=== PATIENT | male | born 1960 | race African-American/Black ===

== ENCOUNTER 2020-07-22 16:05 | Inpatient (IN) | payer OTHER ==
[2020-07-22 16:36] VITALS: BMI 20.5
[2020-07-22] MEDS ORDERED: ACETAMINOPHEN 1000 MG/100 ML VIAL (NON FORMULARY) IVPB ONE (16:55)
[2020-07-22 16:56] VITALS: TEMP 99.9
[2020-07-22 17:11] LABS: EOS % 0.3 % (0-4.5); HEMATOCRIT 35.1 % (35.4-49); HEMOGLOBIN 11.1 GM/dL (11.7-16.9); LYMPH % 11.4 % (8-40); MCH 28.6 pg (25.7-33.7); MCHC 31.6 g/dl (32.0-35.9); MEAN CELL VOLUME 90.7 fl (80-96); MEAN PLT VOLUME 9.8 fl (7.5-11.1); MONO % 8.3 % (3.8-10.2); PLATELET COUNT 182 K/MM3 (134-434); RBC 3.87 M/mm3 (4.00-5.60); RDW 17.8 % (11.9-15.9); WHITE BLOOD COUNT 5.8 K/mm3 (4.0-10.0)
[2020-07-22 17:26] LABS: INR 1.08 (0.83-1.09); PROTHROMBIN TIME (PATIENT) 13.2 SEC (9.7-13.0)
[2020-07-22 17:28] LABS: ACTIVATED PTT 33.9 SECONDS (25.2-36.5)
[2020-07-22 17:31] LABS: VENOUS BASE EXCESS -5.3 mmol/L (-2-2); VENOUS O2 SATURATION 96.8 % (70-80); VENOUS PH 7.362 (7.310-7.410)
[2020-07-22] MEDS ORDERED: ACETAMINOPHEN INJECTION 100 ML IVPB ONE (17:35)
[2020-07-22 17:39] LABS: POTASSIUM 4.6 mmol/L (3.5-5.1)
[2020-07-22 17:41] LABS: CALCIUM 7.9 mg/dL (8.5-10.1)
[2020-07-22 17:42] LABS: ALBUMIN 3.1 g/dl (3.4-5.0); BLOOD UREA NITROGEN 18.3 mg/dL (7-18)
[2020-07-22 17:45] LABS: BILIRUBIN,DIRECT 0.1 mg/dL (0.0-0.2); CREATININE 4.8 mg/dL (0.55-1.3)
[2020-07-22 17:46] LABS: BILIRUBIN,TOTAL 0.5 mg/dL (0.2-1); TOT PROT 6.9 g/dl (6.4-8.2)
[2020-07-22] MEDS ORDERED: INSULIN REGULAR HUMAN 100 UNITS/ML *VIAL SQ ONE (18:16)
[2020-07-22] MEDS ORDERED: FUROSEMIDE 40 MG/4 ML INJECTABLE VIAL IVPUSH ONE (20:52)
[2020-07-22] MEDS ORDERED: SODIUM CHLORIDE 250 ML IV PRN (20:58)
[2020-07-22] MEDS ORDERED: FUROSEMIDE 40 MG/4 ML INJECTABLE VIAL ONE (21:18)
[2020-07-23 01:19] LABS: EPI CELLS 3 /uL (0-25.1); HYALINE CASTS 0 /uL (0-3.1); PH,URINE 6.5 (5.0-8.0); URINE APPEARANCE CLEAR; URINE BACTERIA 2 /uL (0-1359); URINE BILIRUBIN NEGATIVE (NEGATIVE); URINE COLOR YELLOW; URINE GLUCOSE (UA) 3+ (NEGATIVE); URINE KETONE NEGATIVE (NEGATIVE); URINE LEUK ESTERASE NEGATIVE (NEGATIVE); URINE NITRITE NEGATIVE (NEGATIVE); URINE PROTEIN 3+ (NEGATIVE); URINE RBC 19 /uL (0-23.9); URINE UROBILINOGEN 0.2 mg/dL (0.2-1.0); URINE WBC 2 /uL (0-25.8)
[2020-07-23] MEDS ORDERED: HEPARIN NA (PORCINE) 5,000 UNITS/ML 1ML VIAL SQ SCH (06:00)
[2020-07-23] MEDS ORDERED: HEPARIN NA (PORCINE) 5,000 UNITS/ML 1ML VIAL ONE (06:07)
[2020-07-23 06:17] LABS: HEMATOCRIT 33.6 % (35.4-49); HEMOGLOBIN 10.7 GM/dL (11.7-16.9); MCH 28.4 pg (25.7-33.7); MCHC 31.7 g/dl (32.0-35.9); MEAN CELL VOLUME 89.8 fl (80-96); MEAN PLT VOLUME 8.8 fl (7.5-11.1); PLATELET COUNT 147 K/MM3 (134-434); RBC 3.74 M/mm3 (4.00-5.60); RDW 17.5 % (11.9-15.9); WHITE BLOOD COUNT 5.4 K/mm3 (4.0-10.0)
[2020-07-23 06:20] VITALS: PULSE 93
[2020-07-23 06:36] LABS: POTASSIUM 5.1 mmol/L (3.5-5.1)
[2020-07-23 06:38] LABS: CALCIUM 8.2 mg/dL (8.5-10.1)
[2020-07-23 06:39] LABS: ALBUMIN 2.9 g/dl (3.4-5.0); BLOOD UREA NITROGEN 23.1 mg/dL (7-18); MAGNESIUM 1.9 mg/dL (1.8-2.4)
[2020-07-23 06:42] LABS: CREATININE 5.1 mg/dL (0.55-1.3); PHOSPHOROUS 4.4 mg/dL (2.5-4.9)
[2020-07-23 06:43] LABS: COCAINE, UR NEGATIVE ng/ml (CUTOFF=300); METHADONE, UR NEGATIVE ng/ml (CUTOFF=300); OPIATES, URI NEGATIVE ng/ml (CUTOFF=300); PHENCYCLIDINE,URINE NEGATIVE ng/ml (CUTOFF=25); URINE BARBITURATES NEGATIVE ng/ml (CUTOFF=200); URINE BENZODIAZEPINES NEGATIVE ng/ml (CUTOFF=200)
[2020-07-23 06:43] LABS: BILIRUBIN,TOTAL 0.6 mg/dL (0.2-1); TOT PROT 6.3 g/dl (6.4-8.2)
[2020-07-23 06:47] LABS: URINE AMPHETAMINES NEGATIVE ng/ml (CUTOFF=500)
[2020-07-23] MEDS ORDERED: INSULIN SLIDING SCALE (NOVOLOG) 1 VIAL SQ SCH (07:00)
[2020-07-23] MEDS ORDERED: FUROSEMIDE 40 MG TABLET (FP) PO SCH (07:51)
[2020-07-23 08:09] VITALS: BP 165/91
[2020-07-23] MEDS ORDERED: FUROSEMIDE 40 MG TABLET (FP) ONE (09:36)
== END 2020-07-23 12:26 | disposition left against medical advice (07) | DRG 194 ==
LOC: JER 16:05 → JERBED 18:07
PROVIDERS: ADMIT Hospitalist; ATTEND Internal Medicine
PROC: 5A1D70Z Performance of Urinary Filtration, Intermittent, Less than 6 Hours Per Day (ICD-10-PCS; principal; 2020-07-22)
DX: I13.2 Hypertensive heart and chronic kidney disease with heart failure and with stage 5 chronic kidney disease, or end stage renal disease (principal); J96.01 Acute respiratory failure with hypoxia; G93.41 Metabolic encephalopathy; M48.54XA Collapsed vertebra, not elsewhere classified, thoracic region, initial encounter for fracture; E11.40 Type 2 diabetes mellitus with diabetic neuropathy, unspecified; E11.22 Type 2 diabetes mellitus with diabetic chronic kidney disease; E11.65 Type 2 diabetes mellitus with hyperglycemia; N18.6 End stage renal disease; I50.9 Heart failure, unspecified; E87.2 Acidosis; I24.8 Other forms of acute ischemic heart disease; Z99.2 Dependence on renal dialysis; J44.9 Chronic obstructive pulmonary disease, unspecified; D64.9 Anemia, unspecified; I25.10 Atherosclerotic heart disease of native coronary artery without angina pectoris; M54.5 Low back pain; J98.11 Atelectasis; Z79.4 Long term (current) use of insulin; F17.210 Nicotine dependence, cigarettes, uncomplicated; G89.29 Other chronic pain; M54.9 Dorsalgia, unspecified
CPT/HCPCS: 36415; 71045-TC-FY; 71250-TC; 80053; 80307; 81003; 82010; 82248; 82550; 82553; 82607; 82728; 82746; 82803; 82962; 83036; 83540; 83550; 83605; 83615; 83735; 84100; 84443; 84484; 85025; 85027; 85379; 85610; 85730; 86140; 87040; 87086; 93005; 93010; 94660; 99291; C9803; J0131; J1644; U0003

== ENCOUNTER 2020-10-26 03:17 | Inpatient (IN) | payer OTHER ==
[2020-10-26] MEDS ORDERED: ATROPINE SULFATE 1 MG/10 ML DISP.SYRIN IVPUSH ONE (03:26)
[2020-10-26] MEDS ORDERED: GLUCAGON 1 MG KIT IVPUSH ONE ×3 (03:32→04:10)
[2020-10-26] MEDS ORDERED: CALCIUM GLUCONATE 10% - 1,000 MG/10 ML VIAL IVPB ONE ×2 (03:33→03:43)
[2020-10-26 03:47] LABS: BASO % 1.4 % (0-2.0); EOS % 1.4 % (0-4.5); HEMATOCRIT 24.6 % (35.4-49); LYMPH % 20.4 % (8-40); MCH 31.6 pg (25.7-33.7); MCHC 32.5 g/dl (32.0-35.9); MEAN CELL VOLUME 97.3 fl (80-96); MEAN PLT VOLUME 7.8 fl (7.5-11.1); MONO % 9.7 % (3.8-10.2); NEUT % 67.1 % (42.8-82.8); PLATELET COUNT 209 K/MM3 (134-434); RBC 2.53 M/mm3 (4.00-5.60); RDW 19.5 % (11.9-15.9); WHITE BLOOD COUNT 6.7 K/mm3 (4.0-10.0)
[2020-10-26 04:06] LABS: CHLORIDE 101 mmol/L (98-107); POTASSIUM 4.2 mmol/L (3.5-5.1); SODIUM 133 mmol/L (136-145)
[2020-10-26 04:07] LABS: MAGNESIUM 1.9 mg/dL (1.8-2.4)
[2020-10-26 04:08] LABS: CALCIUM 7.9 mg/dL (8.5-10.1)
[2020-10-26 04:09] LABS: ALBUMIN 2.8 g/dl (3.4-5.0); ANION GAP 8 MMOL/L (8-16); BLOOD UREA NITROGEN 31.6 mg/dL (7-18); CO2 24 mmol/L (21-32); GLUCOSE,RANDOM 175 mg/dL (74-106)
[2020-10-26 04:11] LABS: INR 1.08 (0.83-1.09); PHOSPHOROUS 2.6 mg/dL (2.5-4.9); SGPT/ALT 28 U/L (13-61)
[2020-10-26 04:12] LABS: CREATININE 4.7 mg/dL (0.55-1.3); SGOT/AST 31 U/L (15-37)
[2020-10-26 04:13] LABS: ACTIVATED PTT 30.1 SECONDS (25.2-36.5); BILIRUBIN,TOTAL 0.4 mg/dL (0.2-1)
[2020-10-26 04:14] LABS: ALK PHOS 216 U/L (45-117)
[2020-10-26 04:42] LABS: N-TERMINAL BNP 93754.1 pg/ml (5-125)
[2020-10-26] MEDS ORDERED: LIDOCAINE 5% TOPICAL PATCH TP ONE (05:24)
[2020-10-26] MEDS ORDERED: morphine CARPU-JECT 2 MG/1 ML DISP.SYRIN IM ONE (05:25)
[2020-10-26] MEDS ORDERED: ONDANSETRON 4 MG/2 ML VIAL IVPUSH PRN (10:44)
[2020-10-26 11:55] VITALS: BMI 20.9
[2020-10-26] MEDS ORDERED: PANTOPRAZOLE SODIUM 40 MG VIAL IVPUSH ONE (12:32)
[2020-10-26] MEDS ORDERED: PANTOPRAZOLE SODIUM 80 MG in SODIUM CHLORIDE 100 ML IVPB SCH (13:00)
[2020-10-26] MEDS ORDERED: FLU VACCINE (FLULAVAL) PF 60 MCG/0.5 ML SYRINGE 2020-2021 IM ONE (13:48)
[2020-10-26] MEDS ORDERED: DEXMEDETOMIDINE IN 0.9 % NACL 400 MCG/100 ML VIAL IVPB SCH (17:00)
[2020-10-26] MEDS: Insulin (LOG) Aspart 100 UNITS/ML VIAL SQ SCH ×2 (17:05→21:14)
[2020-10-26] MEDS ORDERED: SODIUM CHLORIDE 250 ML IV PRN (18:46)
[2020-10-26 20:28] LABS: HEMATOCRIT 29.6 % (35.4-49); HEMOGLOBIN 9.7 GM/dL (11.7-16.9); MCH 31.4 pg (25.7-33.7); MCHC 32.8 g/dl (32.0-35.9); MEAN CELL VOLUME 95.7 fl (80-96); MEAN PLT VOLUME 8.8 fl (7.5-11.1); PLATELET COUNT 225 K/MM3 (134-434); RBC 3.09 M/mm3 (4.00-5.60); RDW 20.6 % (11.9-15.9); WHITE BLOOD COUNT 5.5 K/mm3 (4.0-10.0)
[2020-10-26] MEDS: INSULIN (LEVEMIR) 100 UNITS/ML UNITS SQ SCH (21:14)
[2020-10-26] MEDS ORDERED: PANTOPRAZOLE 40 MG TABLET PO SCH (22:00)
[2020-10-26] MEDS ORDERED: CHLORHEXIDINE GLUCONATE 4% CLEANSER FOR DECOLONIZATION TP SCH (22:00)
[2020-10-26] MEDS ORDERED: ATORVASTATIN CA 20 MG TABLET (FP) PO SCH (22:00)
[2020-10-26] MEDS ORDERED: GABAPENTIN 100 MG CAPSULE PO SCH (22:00)
[2020-10-26] MEDS ORDERED: LIDOCAINE PATCH REMOVAL MC SCH (22:00)
[2020-10-26] MEDS: MUPIROCIN 2% TOPICAL OINTMENT FOR DECOLONIZATION NS SCH ×2 (22:07→23:51)
[2020-10-27] MEDS: Insulin (LOG) Aspart 100 UNITS/ML VIAL SQ SCH (06:26)
[2020-10-27] MEDS: INSULIN (LEVEMIR) 100 UNITS/ML UNITS SQ SCH (06:26)
[2020-10-27 06:29] VITALS: BP 169/82; PULSE 80; TEMP 98.3
[2020-10-27 06:49] LABS: HEMATOCRIT 27.6 % (35.4-49); HEMOGLOBIN 9.4 GM/dL (11.7-16.9); MCH 32.1 pg (25.7-33.7); MCHC 34.1 g/dl (32.0-35.9); MEAN CELL VOLUME 94.1 fl (80-96); MEAN PLT VOLUME 7.7 fl (7.5-11.1); PLATELET COUNT 224 K/MM3 (134-434); RBC 2.93 M/mm3 (4.00-5.60); RDW 19.9 % (11.9-15.9); WHITE BLOOD COUNT 5.1 K/mm3 (4.0-10.0)
[2020-10-27 06:57] LABS: CHLORIDE 100 mmol/L (98-107); SODIUM 133 mmol/L (136-145)
[2020-10-27 07:02] LABS: ANION GAP 6 MMOL/L (8-16); BLOOD UREA NITROGEN 44.6 mg/dL (7-18); CALCIUM 8.6 mg/dL (8.5-10.1); CO2 27 mmol/L (21-32)
[2020-10-27 07:03] LABS: GLUCOSE,RANDOM 56 mg/dL (74-106)
[2020-10-27 07:05] LABS: SGOT/AST 50 U/L (15-37); SGPT/ALT 37 U/L (13-61)
[2020-10-27 07:06] LABS: CREATININE 5.4 mg/dL (0.55-1.3); PHOSPHOROUS 3.1 mg/dL (2.5-4.9)
[2020-10-27 07:07] LABS: BILIRUBIN,TOTAL 0.5 mg/dL (0.2-1)
[2020-10-27 07:33] LABS: INR 1.03 (0.83-1.09); PROTHROMBIN TIME (PATIENT) 12.7 SEC (9.7-13.0)
[2020-10-27 07:35] LABS: ACTIVATED PTT 30.6 SECONDS (25.2-36.5)
[2020-10-27 08:32] LABS: ALBUMIN 3.4 g/dl (3.4-5.0); ALK PHOS 258 U/L (45-117); N-TERMINAL BNP > 35000.0 pg/ml (5-125)
[2020-10-27] MEDS ORDERED: ASPIRIN COATED 81 MG TABLET.EC PO SCH (10:00)
[2020-10-27] MEDS ORDERED: amLODIPine BESYLATE 10 MG TABLET (FP) PO SCH (10:00)
[2020-10-27] MEDS ORDERED: CLOPIDOGREL BISULFATE 75 MG TABLET (FP) PO SCH (10:00)
[2020-10-27] MEDS ORDERED: CALCIUM 500MG/VIT-D 200 UNITS COMBO TABLET (FP) PO SCH (10:00)
== END 2020-10-27 09:15 | disposition left against medical advice (07) | DRG 201 ==
LOC: JER 03:17 → JERBED 05:01 → JICU 10:51
PROVIDERS: ADMIT Internal Medicine Pulmonary Disease; ATTEND Internal Medicine Pulmonary Disease
PROC: 30233N1 Transfusion of Nonautologous Red Blood Cells into Peripheral Vein, Percutaneous Approach (ICD-10-PCS; principal; 2020-10-26)
DX: R00.1 Bradycardia, unspecified (principal); I25.10 Atherosclerotic heart disease of native coronary artery without angina pectoris; F17.210 Nicotine dependence, cigarettes, uncomplicated; R06.02 Shortness of breath; E87.70 Fluid overload, unspecified; I95.9 Hypotension, unspecified; I12.0 Hypertensive chronic kidney disease with stage 5 chronic kidney disease or end stage renal disease; E11.22 Type 2 diabetes mellitus with diabetic chronic kidney disease; N18.6 End stage renal disease; E11.40 Type 2 diabetes mellitus with diabetic neuropathy, unspecified; D64.9 Anemia, unspecified
CPT/HCPCS: 36415; 36430; 36511; 71045-TC-FY; 80048; 80053; 80307; 82140; 82550; 82553; 82962; 83605; 83690; 83735; 83880; 84100; 84436; 84443; 84479; 84484; 85025; 85027; 85610; 85730; 86850; 86900; 86901; 86922; 87040; 87804; 93005; 93010; 94010; 99285-25; C9803; P9038; P9058; U0003

== ENCOUNTER 2021-07-23 10:12 | Inpatient (IN) | payer OTHER ==
[2021-07-23 11:45] LABS: BASO % 1.8 % (0-2.0); EOS % 3.3 % (0-4.5); LYMPH % 15.5 % (8-40); MCH 29.2 pg (25.7-33.7); MCHC 32.3 g/dl (32.0-35.9); MEAN CELL VOLUME 90.4 fl (80-96); MONO % 12.8 % (3.8-10.2); NEUT % 66.6 % (42.8-82.8); PLATELET COUNT 135 10^3/uL (134-434); RBC 1.88 M/mm3 (4.00-5.60); RDW 18.8 % (11.9-15.9); WHITE BLOOD COUNT 2.8 K/mm3 (4.0-10.0)
[2021-07-23 11:47] LABS: HEMOGLOBIN 5.5 GM/dL (11.7-16.9)
[2021-07-23 11:54] LABS: INR 1.2 (0.83-1.09); PROTHROMBIN TIME (PATIENT) 14.1 SEC (9.7-13.0)
[2021-07-23 11:57] LABS: ACTIVATED PTT 39.7 SECONDS (25.2-36.5)
[2021-07-23 12:05] LABS: CALCIUM 8.2 mg/dL (8.5-10.1)
[2021-07-23 12:06] LABS: ALBUMIN 1.8 g/dl (3.4-5.0)
[2021-07-23 12:09] LABS: CREATININE 3.9 mg/dL (0.55-1.3)
[2021-07-23 12:11] LABS: BILIRUBIN,TOTAL 0.6 mg/dL (0.2-1); TOT PROT 5.6 g/dl (6.4-8.2)
[2021-07-23 12:17] LABS: BLOOD UREA NITROGEN 57.9 mg/dL (7-18)
[2021-07-23] MEDS ORDERED: PANTOPRAZOLE 40 MG TABLET PO SCH (16:15)
[2021-07-23] MEDS ORDERED: PANTOPRAZOLE 40 MG TABLET ONE (16:39)
[2021-07-23] MEDS: INSULIN SLIDING SCALE (NOVOLOG) 1 VIAL SQ SCH (16:57)
[2021-07-23] MEDS: GABAPENTIN 100 MG CAPSULE PO SCH (23:16)
[2021-07-23] MEDS: ATORVASTATIN CA 20 MG TABLET (FP) PO SCH (23:16)
[2021-07-23] MEDS: SACUBITRIL/VALSARTAN 24 MG-26 MG TABLET PO SCH (23:16)
[2021-07-23] MEDS ORDERED: PT OWN MED DRAWER 7, Y5N ONE (23:29)
[2021-07-24] MEDS: BUDESONIDE/FORMETEROL FUMARATE 80/4.5 mcg INHALER IH SCH ×3 (02:08→21:41)
[2021-07-24] MEDS: guaiFENesin/D-M SUGAR-FREE/ACLHOL-FREE 118 ML BOTTLE PO PRN (05:02)
[2021-07-24] MEDS: INSULIN SLIDING SCALE (NOVOLOG) 1 VIAL SQ SCH ×2 (06:23→16:56)
[2021-07-24] MEDS: GABAPENTIN 100 MG CAPSULE PO SCH ×2 (10:07→21:41)
[2021-07-24] MEDS: PANTOPRAZOLE 40 MG TABLET PO SCH ×2 (10:07→21:41)
[2021-07-24] MEDS: SACUBITRIL/VALSARTAN 24 MG-26 MG TABLET PO SCH ×2 (10:08→21:41)
[2021-07-24] MEDS ORDERED: SODIUM CHLORIDE 250 ML IV PRN (11:04)
[2021-07-24 12:39] LABS: BASO % 1.1 % (0-2.0); EOS % 2.1 % (0-4.5); HEMATOCRIT 20.1 % (35.4-49); LYMPH % 11.2 % (8-40); MCH 29.5 pg (25.7-33.7); MCHC 32.8 g/dl (32.0-35.9); MEAN PLT VOLUME 7.4 fl (7.5-11.1); MONO % 12.3 % (3.8-10.2); NEUT % 73.3 % (42.8-82.8); PLATELET COUNT 175 10^3/uL (134-434); RBC 2.23 M/mm3 (4.00-5.60); RDW 17.4 % (11.9-15.9); WHITE BLOOD COUNT 4.1 K/mm3 (4.0-10.0)
[2021-07-24 13:13] LABS: HEMOGLOBIN 6.6 GM/dL (11.7-16.9)
[2021-07-24] MEDS: ATORVASTATIN CA 20 MG TABLET (FP) PO SCH (21:41)
[2021-07-25] MEDS: INSULIN SLIDING SCALE (NOVOLOG) 1 VIAL SQ SCH ×2 (06:11→17:56)
[2021-07-25] MEDS ORDERED: DEXTROSE 50%-WATER - 25 GM/50 ML VIAL IVPUSH ONE (06:17)
[2021-07-25] MEDS ORDERED: DEXTROSE 50%-WATER 25 GM/50 ML DISP.SYRIN ONE (06:35)
[2021-07-25] MEDS: GABAPENTIN 100 MG CAPSULE PO SCH ×2 (09:58→22:16)
[2021-07-25] MEDS: PANTOPRAZOLE 40 MG TABLET PO SCH ×2 (09:58→22:16)
[2021-07-25] MEDS: BUDESONIDE/FORMETEROL FUMARATE 80/4.5 mcg INHALER IH SCH ×2 (09:58→22:17)
[2021-07-25] MEDS: SACUBITRIL/VALSARTAN 24 MG-26 MG TABLET PO SCH ×2 (09:58→22:16)
[2021-07-25 11:40] LABS: ALBUMIN 1.9 g/dl (3.4-5.0)
[2021-07-25 11:41] LABS: CALCIUM 8.3 mg/dL (8.5-10.1)
[2021-07-25 11:42] LABS: CREATININE 3.1 mg/dL (0.55-1.3)
[2021-07-25 11:43] LABS: CALCIUM 8.1 mg/dL (8.5-10.1)
[2021-07-25 11:44] LABS: BILIRUBIN,TOTAL 0.5 mg/dL (0.2-1); TOT PROT 5.8 g/dl (6.4-8.2)
[2021-07-25 11:46] LABS: BLOOD UREA NITROGEN 33.4 mg/dL (7-18)
[2021-07-25 11:46] LABS: BLOOD UREA NITROGEN 34.2 mg/dL (7-18)
[2021-07-25 13:17] LABS: BASO % 1.3 % (0-2.0); EOS % 1.8 % (0-4.5); HEMOGLOBIN 7.8 GM/dL (11.7-16.9); LYMPH % 11.6 % (8-40); MCHC 33.9 g/dl (32.0-35.9); MEAN CELL VOLUME 88.3 fl (80-96); MEAN PLT VOLUME 7.2 fl (7.5-11.1); MONO % 11.5 % (3.8-10.2); NEUT % 73.8 % (42.8-82.8); PLATELET COUNT 139 10^3/uL (134-434); RBC 2.61 M/mm3 (4.00-5.60); RDW 19.9 % (11.9-15.9); WHITE BLOOD COUNT 2.9 K/mm3 (4.0-10.0)
[2021-07-25] MEDS ORDERED: LIDOCAINE 2.5%/PRILOCAINE 2.5% 30 GRAM TUBE TP ONE (13:30)
[2021-07-25] MEDS: ATORVASTATIN CA 20 MG TABLET (FP) PO SCH (22:16)
[2021-07-26] MEDS: guaiFENesin/D-M SUGAR-FREE/ACLHOL-FREE 118 ML BOTTLE PO PRN ×2 (01:10→22:15)
[2021-07-26] MEDS: INSULIN SLIDING SCALE (NOVOLOG) 1 VIAL SQ SCH ×2 (07:10→17:26)
[2021-07-26] MEDS: PANTOPRAZOLE 40 MG TABLET PO SCH ×2 (09:57→22:14)
[2021-07-26] MEDS: GABAPENTIN 100 MG CAPSULE PO SCH ×2 (09:57→22:14)
[2021-07-26] MEDS: SACUBITRIL/VALSARTAN 24 MG-26 MG TABLET PO SCH ×2 (09:58→22:14)
[2021-07-26] MEDS: BUDESONIDE/FORMETEROL FUMARATE 80/4.5 mcg INHALER IH SCH ×2 (09:58→22:15)
[2021-07-26 11:55] LABS: BLOOD UREA NITROGEN 20.1 mg/dL (7-18); CALCIUM 7.8 mg/dL (8.5-10.1); CREATININE 2.2 mg/dL (0.55-1.3)
[2021-07-26 21:07] VITALS: BMI 17.9
[2021-07-26] MEDS: ATORVASTATIN CA 20 MG TABLET (FP) PO SCH (22:14)
[2021-07-27] MEDS ORDERED: GLUCAGON 1 MG KIT IM ONE (05:44)
[2021-07-27] MEDS: INSULIN SLIDING SCALE (NOVOLOG) 1 VIAL SQ SCH ×2 (06:39→18:10)
[2021-07-27] MEDS ORDERED: TETRACAINE/BENZOCAINE/BUTAMBEN 20 GM SPR TP ONE (08:30)
[2021-07-27] MEDS ORDERED: ETOMIDATE 20 MG/10 ML AMPUL IVPUSH ONE (08:33)
[2021-07-27] MEDS ORDERED: NALOXONE HCL 0.4 MG/ML VIAL ONE (08:52)
[2021-07-27] MEDS: GABAPENTIN 100 MG CAPSULE PO SCH ×2 (12:24→21:42)
[2021-07-27] MEDS: PANTOPRAZOLE 40 MG TABLET PO SCH ×2 (12:24→21:42)
[2021-07-27] MEDS: BUDESONIDE/FORMETEROL FUMARATE 80/4.5 mcg INHALER IH SCH ×2 (12:32→21:42)
[2021-07-27] MEDS: SACUBITRIL/VALSARTAN 24 MG-26 MG TABLET PO SCH ×2 (13:05→21:42)
[2021-07-27 13:19] LABS: BASO % 1.2 % (0-2.0); EOS % 2.2 % (0-4.5); HEMATOCRIT 25.2 % (35.4-49); HEMOGLOBIN 8.4 GM/dL (11.7-16.9); LYMPH % 11.9 % (8-40); MCH 29.1 pg (25.7-33.7); MCHC 33.2 g/dl (32.0-35.9); MEAN CELL VOLUME 87.8 fl (80-96); MEAN PLT VOLUME 6.9 fl (7.5-11.1); MONO % 11.6 % (3.8-10.2); NEUT % 73.1 % (42.8-82.8); PLATELET COUNT 132 10^3/uL (134-434); RBC 2.87 M/mm3 (4.00-5.60); RDW 18.2 % (11.9-15.9); WHITE BLOOD COUNT 3.4 K/mm3 (4.0-10.0)
[2021-07-27 13:27] LABS: CALCIUM 7.9 mg/dL (8.5-10.1)
[2021-07-27 13:28] LABS: BLOOD UREA NITROGEN 37.4 mg/dL (7-18)
[2021-07-27 13:31] LABS: CREATININE 2.8 mg/dL (0.55-1.3)
[2021-07-27] MEDS ORDERED: PT OWN MED DRAWER 7, Y5N ONE (21:33)
[2021-07-27] MEDS: ATORVASTATIN CA 20 MG TABLET (FP) PO SCH (21:42)
[2021-07-27] MEDS: guaiFENesin/D-M SUGAR-FREE/ACLHOL-FREE 118 ML BOTTLE PO PRN (21:42)
[2021-07-28] MEDS: INSULIN SLIDING SCALE (NOVOLOG) 1 VIAL SQ SCH ×2 (06:10→16:48)
[2021-07-28 11:43] LABS: BASO % 1.2 % (0-2.0); HEMATOCRIT 22.2 % (35.4-49); HEMOGLOBIN 7.3 GM/dL (11.7-16.9); LYMPH % 12.8 % (8-40); MCH 29.6 pg (25.7-33.7); MCHC 33.2 g/dl (32.0-35.9); MEAN CELL VOLUME 89.2 fl (80-96); MEAN PLT VOLUME 7.1 fl (7.5-11.1); MONO % 10.6 % (3.8-10.2); NEUT % 72.4 % (42.8-82.8); PLATELET COUNT 140 10^3/uL (134-434); RBC 2.48 M/mm3 (4.00-5.60); RDW 17.8 % (11.9-15.9); RETICULOCYTES 1.45 % (0.5-1.5); WHITE BLOOD COUNT 3.3 K/mm3 (4.0-10.0)
[2021-07-28 12:01] LABS: CALCIUM 7.4 mg/dL (8.5-10.1)
[2021-07-28 12:02] LABS: BLOOD UREA NITROGEN 48.5 mg/dL (7-18)
[2021-07-28 12:05] LABS: CREATININE 3.5 mg/dL (0.55-1.3)
[2021-07-28] MEDS ORDERED: EPOETIN ALFA-EPBX 4,000 UNIT/ML VIAL IVPUSH ONE (14:15)
[2021-07-28] MEDS ORDERED: PT OWN MED DRAWER 7, Y5N ONE ×2 (14:44→20:17)
[2021-07-28] MEDS: SACUBITRIL/VALSARTAN 24 MG-26 MG TABLET PO SCH ×2 (14:46→21:49)
[2021-07-28] MEDS: VITAMIN B COMP W-C 1 EA TABLET (NEPHRO-VITE) PO SCH (14:47)
[2021-07-28] MEDS: guaiFENesin/D-M SUGAR-FREE/ACLHOL-FREE 118 ML BOTTLE PO PRN ×2 (14:47→21:50)
[2021-07-28] MEDS: BUDESONIDE/FORMETEROL FUMARATE 80/4.5 mcg INHALER IH SCH ×2 (14:48→21:50)
[2021-07-28] MEDS: PANTOPRAZOLE 40 MG TABLET PO SCH ×2 (14:55→21:50)
[2021-07-28] MEDS: GABAPENTIN 100 MG CAPSULE PO SCH ×2 (14:55→21:50)
[2021-07-28] MEDS ORDERED: IRON SUCROSE INJECTION 200 MG in SODIUM CHLORIDE 90 ML IVPB ONE (16:37)
[2021-07-28] MEDS: ATORVASTATIN CA 20 MG TABLET (FP) PO SCH (21:49)
[2021-07-29] MEDS: INSULIN SLIDING SCALE (NOVOLOG) 1 VIAL SQ SCH ×2 (06:10→16:49)
[2021-07-29] MEDS: GABAPENTIN 100 MG CAPSULE PO SCH (09:43)
[2021-07-29] MEDS: PANTOPRAZOLE 40 MG TABLET PO SCH (09:43)
[2021-07-29] MEDS: BUDESONIDE/FORMETEROL FUMARATE 80/4.5 mcg INHALER IH SCH (09:43)
[2021-07-29] MEDS: VITAMIN B COMP W-C 1 EA TABLET (NEPHRO-VITE) PO SCH (09:43)
[2021-07-29] MEDS: SACUBITRIL/VALSARTAN 24 MG-26 MG TABLET PO SCH (09:43)
[2021-07-29] MEDS ORDERED: EPOETIN ALFA-EPBX 4,000 UNIT/ML VIAL IVPUSH ONE ×2 (15:37→15:45)
[2021-07-29] MEDS ORDERED: SODIUM CHLORIDE 250 ML IV PRN (15:37)
[2021-07-29 18:17] VITALS: BP 131/68; PULSE 78; TEMP 98.4
[2021-07-30 22:09] LABS: GLIADIN ANTIBODY IGA 3 units (0-19); GLIADIN ANTIBODY IGG 2 units (0-19); TRANSGLUTAMINASE IGG < 2 U/mL (0-5)
== END 2021-07-29 18:27 | DRG 194 ==
LOC: JER 10:12 → JERBED 14:47 → J5S 20:35
PROVIDERS: ADMIT Internal Medicine; ATTEND Internal Medicine
PROC: 30233N1 Transfusion of Nonautologous Red Blood Cells into Peripheral Vein, Percutaneous Approach (ICD-10-PCS; 2021-07-23)
PROC: 5A1D70Z Performance of Urinary Filtration, Intermittent, Less than 6 Hours Per Day (ICD-10-PCS; 2021-07-24)
PROC: 0DB68ZX Excision of Stomach, Via Natural or Artificial Opening Endoscopic, Diagnostic (ICD-10-PCS; 2021-07-27)
PROC: 0DB98ZX Excision of Duodenum, Via Natural or Artificial Opening Endoscopic, Diagnostic (ICD-10-PCS; principal; 2021-07-27 08:34)
DX: I13.2 Hypertensive heart and chronic kidney disease with heart failure and with stage 5 chronic kidney disease, or end stage renal disease (principal); N18.6 End stage renal disease; I50.42 Chronic combined systolic (congestive) and diastolic (congestive) heart failure; Z99.2 Dependence on renal dialysis; J44.9 Chronic obstructive pulmonary disease, unspecified; D50.9 Iron deficiency anemia, unspecified; N18.9 Chronic kidney disease, unspecified; I32 Pericarditis in diseases classified elsewhere; Z91.15 Patient's noncompliance with renal dialysis; E11.22 Type 2 diabetes mellitus with diabetic chronic kidney disease; I31.3 Pericardial effusion (noninflammatory)
CPT/HCPCS: 36415; 36430; 36511; 74176-TC; 76700-TC; 80048; 80053; 82105; 82272; 82607; 82728; 82746; 82784; 82962; 82977; 83516; 83540; 83550; 83615; 84155; 84165; 85025; 85045; 85610; 85730; 86140; 86334; 86803; 86850; 86900; 86901; 86922; 87340; 87522; 88305-TC; 93005; 93010; 93306-TC; 99285-25; C9803; J1756; P9038; P9058; Q5106; U0003; U0005

== ENCOUNTER 2021-08-01 18:37 | Inpatient (IN) | payer OTHER ==
[2021-08-01 20:20] LABS: BASO % 1.9 % (0-2.0); HEMATOCRIT 16.7 % (35.4-49); LYMPH % 14.4 % (8-40); MCH 28.8 pg (25.7-33.7); MCHC 32.4 g/dl (32.0-35.9); MEAN CELL VOLUME 88.7 fl (80-96); MEAN PLT VOLUME 7.2 fl (7.5-11.1); MONO % 13.8 % (3.8-10.2); NEUT % 68.9 % (42.8-82.8); PLATELET COUNT 190 10^3/uL (134-434); RBC 1.88 M/mm3 (4.00-5.60); RDW 17.8 % (11.9-15.9); WHITE BLOOD COUNT 3.4 K/mm3 (4.0-10.0)
[2021-08-01 20:27] LABS: HEMOGLOBIN 5.4 GM/dL (11.7-16.9)
[2021-08-01 20:28] LABS: INR 1.22 (0.83-1.09); PROTHROMBIN TIME (PATIENT) 13.7 SEC (9.7-13.0)
[2021-08-01 20:45] LABS: CHLORIDE 98 mmol/L (98-107); SODIUM 134 mmol/L (136-145)
[2021-08-01 20:48] LABS: CALCIUM 8.1 mg/dL (8.5-10.1)
[2021-08-01 20:49] LABS: ALBUMIN 1.8 g/dl (3.4-5.0); ANION GAP 9 MMOL/L (8-16); BLOOD UREA NITROGEN 52.4 mg/dL (7-18); CO2 27 mmol/L (21-32); GLUCOSE,RANDOM 124 mg/dL (74-106); MAGNESIUM 2.1 mg/dL (1.8-2.4)
[2021-08-01 20:51] LABS: CREATININE 3.3 mg/dL (0.55-1.3); PHOSPHOROUS 2.2 mg/dL (2.5-4.9); SGOT/AST 34 U/L (15-37); SGPT/ALT 17 U/L (13-61)
[2021-08-01 20:52] LABS: BILIRUBIN,TOTAL 0.4 mg/dL (0.2-1); TOT PROT 5.6 g/dl (6.4-8.2)
[2021-08-01 21:21] LABS: ALK PHOS 293 U/L (45-117)
[2021-08-02 13:05] LABS: EPI CELLS 1 /uL (0-25.1); HYALINE CASTS 0 /uL (0-3.1); URINE APPEARANCE CLOUDY; URINE BACTERIA 583 /uL (0-1359); URINE BILIRUBIN NEGATIVE (NEGATIVE); URINE COLOR YELLOW; URINE GLUCOSE (UA) NEGATIVE (NEGATIVE); URINE KETONE NEGATIVE (NEGATIVE); URINE LEUK ESTERASE 2+ (NEGATIVE); URINE NITRITE NEGATIVE (NEGATIVE); URINE PROTEIN 2+ (NEGATIVE); URINE RBC 4 /uL (0-23.9); URINE UROBILINOGEN 0.2 mg/dL (0.2-1.0); URINE WBC 175 /uL (0-25.8)
[2021-08-02 13:06] LABS: BASO % 1.1 % (0-2.0); EOS % 1.3 % (0-4.5); HEMATOCRIT 24.5 % (35.4-49); HEMOGLOBIN 8.2 GM/dL (11.7-16.9); LYMPH % 13.1 % (8-40); MCH 29.1 pg (25.7-33.7); MCHC 33.4 g/dl (32.0-35.9); MEAN CELL VOLUME 87.1 fl (80-96); MONO % 12.2 % (3.8-10.2); NEUT % 72.3 % (42.8-82.8); PLATELET COUNT 193 10^3/uL (134-434); RBC 2.81 M/mm3 (4.00-5.60); RDW 16.6 % (11.9-15.9); WHITE BLOOD COUNT 3.3 K/mm3 (4.0-10.0)
[2021-08-02 13:10] LABS: COCAINE, UR NEGATIVE (NEGATIVE); PHENCYCLIDINE,URINE NEGATIVE (NEGATIVE); URINE BARBITURATES NEGATIVE (NEGATIVE)
[2021-08-02 13:11] LABS: METHADONE, UR NEGATIVE (NEGATIVE); URINE BENZODIAZEPINES NEGATIVE (NEGATIVE)
[2021-08-02 13:21] LABS: OPIATES, URI POSITIVE (NEGATIVE); URINE AMPHETAMINES NEGATIVE (NEGATIVE)
[2021-08-02 13:28] LABS: CALCIUM 8.1 mg/dL (8.5-10.1)
[2021-08-02 13:29] LABS: BLOOD UREA NITROGEN 57.2 mg/dL (7-18)
[2021-08-02 13:32] LABS: CREATININE 3.6 mg/dL (0.55-1.3)
[2021-08-03 11:57] LABS: HEMATOCRIT 22.1 % (35.4-49); HEMOGLOBIN 7.5 GM/dL (11.7-16.9); MCH 29.3 pg (25.7-33.7); MCHC 33.7 g/dl (32.0-35.9); MEAN CELL VOLUME 86.9 fl (80-96); MEAN PLT VOLUME 6.9 fl (7.5-11.1); PLATELET COUNT 199 10^3/uL (134-434); RBC 2.55 M/mm3 (4.00-5.60); WHITE BLOOD COUNT 2.7 K/mm3 (4.0-10.0)
[2021-08-03 12:24] LABS: CALCIUM 7.9 mg/dL (8.5-10.1)
[2021-08-03 12:29] LABS: CREATININE 3.7 mg/dL (0.55-1.3)
[2021-08-05 13:45] LABS: HEMATOCRIT 21.5 % (35.4-49); HEMOGLOBIN 7.1 GM/dL (11.7-16.9); MCH 29.7 pg (25.7-33.7); MCHC 33.2 g/dl (32.0-35.9); MEAN CELL VOLUME 89.6 fl (80-96); MEAN PLT VOLUME 7.3 fl (7.5-11.1); PLATELET COUNT 221 10^3/uL (134-434); RDW 17.6 % (11.9-15.9); WHITE BLOOD COUNT 2.7 K/mm3 (4.0-10.0)
[2021-08-07 08:07] LABS: HEMATOCRIT 25.9 % (35.4-49); HEMOGLOBIN 8.6 GM/dL (11.7-16.9); MCH 29.6 pg (25.7-33.7); MCHC 33.2 g/dl (32.0-35.9); MEAN CELL VOLUME 89.3 fl (80-96); MEAN PLT VOLUME 6.5 fl (7.5-11.1); PLATELET COUNT 221 10^3/uL (134-434); RDW 16.8 % (11.9-15.9); WHITE BLOOD COUNT 2.6 K/mm3 (4.0-10.0)
[2021-08-07 13:50] VITALS: TEMP 98.3
[2021-08-07 17:41] VITALS: BMI 18.1
[2021-08-07 20:38] VITALS: BP 138/67; PULSE 79
== END 2021-08-07 20:55 | DRG 194 ==
LOC: JER 18:37 → JERBED 21:17 → J8W 08-02 03:47 → J7W 08-05 19:10
PROVIDERS: ATTEND Internal Medicine
PROC: 30233N1 Transfusion of Nonautologous Red Blood Cells into Peripheral Vein, Percutaneous Approach (ICD-10-PCS; principal; 2021-08-01)
PROC: 5A1D70Z Performance of Urinary Filtration, Intermittent, Less than 6 Hours Per Day (ICD-10-PCS; 2021-08-02)
DX: I13.2 Hypertensive heart and chronic kidney disease with heart failure and with stage 5 chronic kidney disease, or end stage renal disease (principal); N18.6 End stage renal disease; I32 Pericarditis in diseases classified elsewhere; I25.10 Atherosclerotic heart disease of native coronary artery without angina pectoris; D50.9 Iron deficiency anemia, unspecified; J44.9 Chronic obstructive pulmonary disease, unspecified; E11.22 Type 2 diabetes mellitus with diabetic chronic kidney disease; I50.9 Heart failure, unspecified; Z99.81 Dependence on supplemental oxygen; Z99.2 Dependence on renal dialysis; Z91.15 Patient's noncompliance with renal dialysis
CPT/HCPCS: 36415; 36430; 36511; 71045-TC-FY; 80048; 80053; 80307; 81003; 82272; 82550; 82728; 82962; 83010; 83540; 83550; 83605; 83615; 83735; 84100; 84466; 84484; 85025; 85027; 85045; 85610; 85730; 86850; 86900; 86901; 86922; 87086; 87186; 93005; 93010; 99285-25; C9803; J0131; J1756; P9038; P9058; Q5106; U0003; U0005

== ENCOUNTER 2021-10-13 16:30 | Inpatient (IN) | payer OTHER ==
[2021-10-13 17:27] LABS: HEMATOCRIT 19.6 % (35.4-49); MCH 28.7 pg (25.7-33.7); MCHC 32.4 g/dl (32.0-35.9); MEAN CELL VOLUME 88.5 fl (80-96); PLATELET COUNT 183 10^3/uL (134-434); RBC 2.22 M/mm3 (4.00-5.60); RDW 15.9 % (11.9-15.9)
[2021-10-13 17:29] LABS: WHITE BLOOD COUNT 1.8 K/mm3 (4.0-10.0)
[2021-10-13 17:30] LABS: HEMOGLOBIN 6.4 GM/dL (11.7-16.9)
[2021-10-13 17:44] LABS: CHLORIDE 98 mmol/L (98-107); SODIUM 130 mmol/L (136-145)
[2021-10-13 17:46] LABS: BLOOD UREA NITROGEN 34.1 mg/dL (7-18); CALCIUM 8.3 mg/dL (8.5-10.1); CO2 28 mmol/L (21-32)
[2021-10-13 17:47] LABS: ALBUMIN 1.7 g/dl (3.4-5.0); GLUCOSE,RANDOM 128 mg/dL (74-106); MAGNESIUM 2.1 mg/dL (1.8-2.4)
[2021-10-13 17:50] LABS: CREATININE 3.3 mg/dL (0.55-1.3); SGOT/AST 42 U/L (15-37); SGPT/ALT 14 U/L (13-61)
[2021-10-13 17:51] LABS: TOT PROT 6.1 g/dl (6.4-8.2)
[2021-10-13 17:52] LABS: ALK PHOS 177 U/L (45-117)
[2021-10-13 17:55] LABS: BILIRUBIN,TOTAL 0.4 mg/dL (0.2-1)
[2021-10-13] MEDS ORDERED: oxyCODONE HCL 5 MG TABLET PO ONE (17:57)
[2021-10-13] MEDS ORDERED: VANCOMYCIN 1 GM in D5W (PRE-DOCKED) 1,000 MG/250 ML IVPB ONE (17:57)
[2021-10-13 17:58] LABS: ACTIVATED PTT 36.8 SECONDS (25.2-36.5); INR 1.18 (0.83-1.09); PROTHROMBIN TIME (PATIENT) 13.6 SEC (9.7-13.0)
[2021-10-13 18:06] LABS: ANION GAP 5 MMOL/L (8-16)
[2021-10-13] MEDS ORDERED: oxyCODONE HCL 5 MG TABLET ONE (18:12)
[2021-10-13 18:20] LABS: ANISOCYTOSIS 1+; MACROCYTOSIS 0; PLATELET ESTIMATE NORMAL; TEAR DROP CELLS 1+
[2021-10-13 20:08] LABS: BLOOD UREA NITROGEN 34.1 mg/dL (7-18); CALCIUM 8.4 mg/dL (8.5-10.1)
[2021-10-13 20:12] LABS: CREATININE 3.3 mg/dL (0.55-1.3)
[2021-10-13] MEDS ORDERED: FUROSEMIDE 40 MG/4 ML INJECTABLE VIAL IVPUSH ONE (20:15)
[2021-10-13] MEDS ORDERED: SODIUM CHLORIDE 250 ML IV PRN (20:18)
[2021-10-13] MEDS ORDERED: FUROSEMIDE 40 MG/4 ML INJECTABLE VIAL ONE (20:44)
[2021-10-13] MEDS: INSULIN SLIDING SCALE (NOVOLOG) 1 VIAL SQ SCH (22:26)
[2021-10-13] MEDS ORDERED: guaiFENesin 200 MG/10 ML 10 ML UNIT-DOSE CUPS PO PRN (22:29)
[2021-10-13] MEDS ORDERED: ALBUTEROL SO4 2.5/IPRATROPIUM 0.5 INH SOL 3 ML VIAL.NEB. NEB PRN (22:29)
[2021-10-13] MEDS ORDERED: MELATONIN 1 MG TABLET PO PRN (22:29)
[2021-10-13] MEDS ORDERED: ATORVASTATIN CA 20 MG TABLET (FP) ONE (22:38)
[2021-10-13] MEDS ORDERED: morphine SULFATE 4 MG/ML VIAL IM ONE (22:45)
[2021-10-13] MEDS ORDERED: morphine SULFATE 4 MG/ML VIAL ONE (22:45)
[2021-10-13] MEDS: ATORVASTATIN CA 20 MG TABLET (FP) PO SCH (22:50)
[2021-10-14] MEDS ORDERED: NITROGLYCERIN SUBLINGUAL 1/150 0.4 MG TAB SL PRN (05:59)
[2021-10-14] MEDS ORDERED: HALOPERIDOL 0.5 MG TABLET PO PRN (06:02)
[2021-10-14] MEDS ORDERED: guaiFENesin 200 MG/10 ML 10 ML UNIT-DOSE CUPS PO PRN (06:15)
[2021-10-14] MEDS ORDERED: CLINDAMYCIN IVPB 300 MG in DEXTROSE 5%-WATER - 48 ML IVPB ONE (07:40)
[2021-10-14] MEDS: INSULIN SLIDING SCALE (NOVOLOG) 1 VIAL SQ SCH ×4 (07:57→21:42)
[2021-10-14 08:12] LABS: BASO % 1.6 % (0-2.0); EOS % 3.4 % (0-4.5); HEMATOCRIT 22.7 % (35.4-49); HEMOGLOBIN 7.4 GM/dL (11.7-16.9); LYMPH % 22.4 % (8-40); MCH 29.1 pg (25.7-33.7); MCHC 32.8 g/dl (32.0-35.9); MEAN PLT VOLUME 6.8 fl (7.5-11.1); MONO % 18.6 % (3.8-10.2); PLATELET COUNT 165 10^3/uL (134-434); RBC 2.56 M/mm3 (4.00-5.60); RDW 15.7 % (11.9-15.9)
[2021-10-14 08:17] LABS: CALCIUM 8.5 mg/dL (8.5-10.1)
[2021-10-14 08:18] LABS: ALBUMIN 1.7 g/dl (3.4-5.0); BLOOD UREA NITROGEN 36.6 mg/dL (7-18)
[2021-10-14] MEDS ORDERED: FUROSEMIDE 40 MG TABLET (FP) ONE (08:18)
[2021-10-14] MEDS ORDERED: METOPROLOL TARTRATE 25 MG TABLET (FP) ONE (08:18)
[2021-10-14] MEDS ORDERED: ACETAMINOPHEN 325 MG TABLET (FP) ONE (08:18)
[2021-10-14] MEDS ORDERED: PANTOPRAZOLE 40 MG TABLET ONE (08:18)
[2021-10-14] MEDS ORDERED: LIDOCAINE 5% TOPICAL PATCH ONE (08:19)
[2021-10-14] MEDS ORDERED: SERTRALINE HCL 50 MG TABLET (FP) ONE (08:19)
[2021-10-14] MEDS ORDERED: FOLIC ACID 1 MG TABLET (FP) ONE (08:19)
[2021-10-14 08:21] LABS: CREATININE 3.5 mg/dL (0.55-1.3); PHOSPHOROUS 3.7 mg/dL (2.5-4.9)
[2021-10-14 08:22] LABS: BILIRUBIN,TOTAL 0.6 mg/dL (0.2-1); TOT PROT 5.6 g/dl (6.4-8.2); WHITE BLOOD COUNT 1.9 K/mm3 (4.0-10.0)
[2021-10-14] MEDS: PETROLATUM, WHITE 30 GM TUBE TP SCH ×3 (08:32→21:43)
[2021-10-14 09:14] LABS: ANISOCYTOSIS 1+; MACROCYTOSIS 0
[2021-10-14] MEDS: FUROSEMIDE 40 MG TABLET (FP) PO SCH (09:28)
[2021-10-14] MEDS: LIDOCAINE 5% TOPICAL PATCH TP SCH (09:28)
[2021-10-14] MEDS: amLODIPine BESYLATE 10 MG TABLET (FP) PO SCH (09:28)
[2021-10-14] MEDS: FOLIC ACID 1 MG TABLET (FP) PO SCH (09:28)
[2021-10-14] MEDS: ACETAMINOPHEN 325 MG TABLET (FP) PO PRN (09:28)
[2021-10-14] MEDS: METOPROLOL TARTRATE 25 MG TABLET (FP) PO SCH ×2 (09:28→21:24)
[2021-10-14] MEDS: PANTOPRAZOLE 40 MG TABLET PO SCH (09:28)
[2021-10-14] MEDS: SERTRALINE HCL 25 MG TABLET (FP) PO SCH (09:29)
[2021-10-14] MEDS: SACUBITRIL/VALSARTAN 24 MG-26 MG TABLET PO SCH ×2 (10:10→21:24)
[2021-10-14] MEDS ORDERED: VANCOMYCIN 1 GM in D5W (PRE-DOCKED) 1,000 MG/250 ML IVPB ONE (12:00)
[2021-10-14 12:12] LABS: RETICULOCYTES 1.72 % (0.5-1.5)
[2021-10-14] MEDS: FLUTICASONE/UMECLIDIN/VILANTER(200-62.5-25 TRELEGY ELLIPTA) INAHLER IH SCH (12:16)
[2021-10-14] MEDS ORDERED: EPOETIN ALFA-EPBX 10,000 UNIT/ML VIAL SQ ONE (12:30)
[2021-10-14] MEDS: LIDOCAINE 2.5%/PRILOCAINE 2.5% 30 GRAM TUBE TP PRN (15:00)
[2021-10-14] MEDS: MEROPENEM 500 MG in DEXTROSE 5%-WATER 100 ML IVPB SCH (19:29)
[2021-10-14] MEDS: oxyCODONE HCL 5 MG TABLET PO PRN (21:23)
[2021-10-14] MEDS: ATORVASTATIN CA 20 MG TABLET (FP) PO SCH (21:25)
[2021-10-14] MEDS: LIDOCAINE PATCH REMOVAL MC SCH (21:42)
[2021-10-15] MEDS: MELATONIN 5 MG TABLETS PO PRN ×2 (02:44→21:33)
[2021-10-15] MEDS: oxyCODONE HCL 5 MG TABLET PO PRN ×2 (02:44→18:01)
[2021-10-15] MEDS: PETROLATUM, WHITE 30 GM TUBE TP SCH ×3 (06:19→22:33)
[2021-10-15] MEDS: INSULIN SLIDING SCALE (NOVOLOG) 1 VIAL SQ SCH ×4 (06:37→22:32)
[2021-10-15 07:56] LABS: HEMATOCRIT 24.8 % (35.4-49); HEMOGLOBIN 8.5 GM/dL (11.7-16.9); MCH 29.8 pg (25.7-33.7); MCHC 34.5 g/dl (32.0-35.9); MEAN CELL VOLUME 86.4 fl (80-96); MEAN PLT VOLUME 6.8 fl (7.5-11.1); PLATELET COUNT 121 10^3/uL (134-434); RBC 2.87 M/mm3 (4.00-5.60)
[2021-10-15 08:14] LABS: CALCIUM 7.3 mg/dL (8.5-10.1)
[2021-10-15 08:15] LABS: ALBUMIN 1.7 g/dl (3.4-5.0); BLOOD UREA NITROGEN 18.4 mg/dL (7-18)
[2021-10-15 08:18] LABS: CREATININE 2.3 mg/dL (0.55-1.3)
[2021-10-15 08:19] LABS: BILIRUBIN,TOTAL 0.5 mg/dL (0.2-1); TOT PROT 5.8 g/dl (6.4-8.2)
[2021-10-15 09:45] LABS: WHITE BLOOD COUNT 1.7 K/mm3 (4.0-10.0)
[2021-10-15] MEDS: METOPROLOL TARTRATE 25 MG TABLET (FP) PO SCH ×2 (10:16→21:32)
[2021-10-15] MEDS: FOLIC ACID 1 MG TABLET (FP) PO SCH (10:16)
[2021-10-15] MEDS: SERTRALINE HCL 25 MG TABLET (FP) PO SCH (10:16)
[2021-10-15] MEDS: PANTOPRAZOLE 40 MG TABLET PO SCH (10:16)
[2021-10-15] MEDS: amLODIPine BESYLATE 10 MG TABLET (FP) PO SCH (10:16)
[2021-10-15] MEDS: FUROSEMIDE 40 MG TABLET (FP) PO SCH (10:16)
[2021-10-15] MEDS: LIDOCAINE 5% TOPICAL PATCH TP SCH (10:17)
[2021-10-15] MEDS: SACUBITRIL/VALSARTAN 24 MG-26 MG TABLET PO SCH ×2 (10:18→21:31)
[2021-10-15] MEDS: FLUTICASONE/UMECLIDIN/VILANTER(200-62.5-25 TRELEGY ELLIPTA) INAHLER IH SCH (11:25)
[2021-10-15 13:59] LABS: ANISOCYTOSIS 0; MACROCYTOSIS 0
[2021-10-15] MEDS: NICOTINE 7 MG/24 HOURS TOPICAL PATCH TD SCH (15:05)
[2021-10-15] MEDS: MEROPENEM 500 MG in DEXTROSE 5%-WATER 100 ML IVPB SCH (15:05)
[2021-10-15] MEDS: COLLAGENASE CLOSTRIDIUM HIST. 30 GRAMS TUBE TP SCH (17:45)
[2021-10-15] MEDS: ATORVASTATIN CA 20 MG TABLET (FP) PO SCH (21:32)
[2021-10-15] MEDS: LIDOCAINE PATCH REMOVAL MC SCH (21:32)
[2021-10-15] MEDS: OLANZapine 5 MG TABLET PO SCH (21:33)
[2021-10-16] MEDS: oxyCODONE HCL 5 MG TABLET PO PRN ×2 (02:36→10:17)
[2021-10-16] MEDS: PETROLATUM, WHITE 30 GM TUBE TP SCH ×3 (06:16→21:54)
[2021-10-16] MEDS: INSULIN SLIDING SCALE (NOVOLOG) 1 VIAL SQ SCH ×4 (06:17→22:08)
[2021-10-16] MEDS: SACUBITRIL/VALSARTAN 24 MG-26 MG TABLET PO SCH ×2 (10:00→21:54)
[2021-10-16] MEDS: FOLIC ACID 1 MG TABLET (FP) PO SCH (10:00)
[2021-10-16] MEDS: FUROSEMIDE 40 MG TABLET (FP) PO SCH (10:00)
[2021-10-16] MEDS: AMINO ACIDS/PROTEIN HYDROLYS 30 ML LIQUID.PKT PO SCH (10:00)
[2021-10-16] MEDS: amLODIPine BESYLATE 10 MG TABLET (FP) PO SCH (10:00)
[2021-10-16] MEDS: METOPROLOL TARTRATE 25 MG TABLET (FP) PO SCH ×2 (10:00→21:54)
[2021-10-16] MEDS: PANTOPRAZOLE 40 MG TABLET PO SCH (10:01)
[2021-10-16] MEDS: FLUTICASONE/UMECLIDIN/VILANTER(200-62.5-25 TRELEGY ELLIPTA) INAHLER IH SCH (10:01)
[2021-10-16] MEDS: NICOTINE 7 MG/24 HOURS TOPICAL PATCH TD SCH (10:01)
[2021-10-16] MEDS: SERTRALINE HCL 25 MG TABLET (FP) PO SCH (10:01)
[2021-10-16] MEDS: LIDOCAINE 5% TOPICAL PATCH TP SCH (10:02)
[2021-10-16] MEDS ORDERED: INSULIN (NOVOLOG) ASPART 100 UNITS/ML 10ML VIAL ONE (11:16)
[2021-10-16] MEDS: LIDOCAINE 2.5%/PRILOCAINE 2.5% 30 GRAM TUBE TP PRN (11:18)
[2021-10-16] MEDS ORDERED: DEXTROSE 50%-WATER - 25 GM/50 ML VIAL IVPUSH ONE ×2 (11:29→21:32)
[2021-10-16] MEDS ORDERED: SODIUM CHLORIDE 250 ML IV PRN (11:30)
[2021-10-16] MEDS ORDERED: EPOETIN ALFA-EPBX 10,000 UNIT/ML VIAL IVPUSH ONE (11:30)
[2021-10-16] MEDS ORDERED: DEXTROSE 10%-WATER - 1,000 ML IV SCH ×2 (11:45→21:45)
[2021-10-16] MEDS ORDERED: DEXTROSE 5%-WATER - 1,000 ML IV SCH (12:00)
[2021-10-16 13:21] LABS: HEMATOCRIT 27.4 % (35.4-49); HEMOGLOBIN 9.1 GM/dL (11.7-16.9); MCH 29.3 pg (25.7-33.7); MCHC 33.3 g/dl (32.0-35.9); MEAN CELL VOLUME 88.2 fl (80-96); MEAN PLT VOLUME 6.9 fl (7.5-11.1); PLATELET COUNT 104 10^3/uL (134-434); RBC 3.11 M/mm3 (4.00-5.60); RDW 17.3 % (11.9-15.9); WHITE BLOOD COUNT 4.8 K/mm3 (4.0-10.0)
[2021-10-16 13:48] LABS: CALCIUM 7.7 mg/dL (8.5-10.1)
[2021-10-16 13:51] LABS: CREATININE 2.9 mg/dL (0.55-1.3)
[2021-10-16 14:19] LABS: BLOOD UREA NITROGEN 29.2 mg/dL (7-18)
[2021-10-16] MEDS: MEROPENEM 500 MG in DEXTROSE 5%-WATER 100 ML IVPB SCH (16:29)
[2021-10-16] MEDS: COLLAGENASE CLOSTRIDIUM HIST. 30 GRAMS TUBE TP SCH (16:31)
[2021-10-16] MEDS ORDERED: GENTAMICIN 80 MG PREMIXED IVPB 80 MG/100 ML BAG IVPB ONE (18:15)
[2021-10-16] MEDS ORDERED: VANCOMYCIN 1,000 MG in DEXTROSE 5%-WATER - 250 ML IVPB ONE (18:15)
[2021-10-16] MEDS ORDERED: DEXTROSE 50%-WATER - 25 GM/50 ML VIAL IVPUSH PRN (21:37)
[2021-10-16] MEDS: ATORVASTATIN CA 20 MG TABLET (FP) PO SCH (21:54)
[2021-10-16] MEDS: OLANZapine 5 MG TABLET PO SCH (21:54)
[2021-10-16] MEDS: LIDOCAINE PATCH REMOVAL MC SCH (21:54)
[2021-10-17] MEDS: PETROLATUM, WHITE 30 GM TUBE TP SCH ×3 (05:57→23:04)
[2021-10-17] MEDS: INSULIN SLIDING SCALE (NOVOLOG) 1 VIAL SQ SCH ×4 (06:15→22:04)
[2021-10-17] MEDS: AMINO ACIDS/PROTEIN HYDROLYS 30 ML LIQUID.PKT PO SCH (08:21)
[2021-10-17] MEDS: PANTOPRAZOLE 40 MG TABLET PO SCH (10:48)
[2021-10-17] MEDS: NICOTINE 7 MG/24 HOURS TOPICAL PATCH TD SCH (10:48)
[2021-10-17] MEDS: FOLIC ACID 1 MG TABLET (FP) PO SCH (10:48)
[2021-10-17] MEDS: FUROSEMIDE 40 MG TABLET (FP) PO SCH (10:48)
[2021-10-17] MEDS: LIDOCAINE 5% TOPICAL PATCH TP SCH (10:48)
[2021-10-17] MEDS: METOPROLOL TARTRATE 25 MG TABLET (FP) PO SCH ×2 (10:48→23:04)
[2021-10-17] MEDS: amLODIPine BESYLATE 10 MG TABLET (FP) PO SCH (10:48)
[2021-10-17] MEDS: SERTRALINE HCL 25 MG TABLET (FP) PO SCH (10:48)
[2021-10-17] MEDS: SACUBITRIL/VALSARTAN 24 MG-26 MG TABLET PO SCH ×2 (10:49→22:03)
[2021-10-17] MEDS: COLLAGENASE CLOSTRIDIUM HIST. 30 GRAMS TUBE TP SCH (10:49)
[2021-10-17] MEDS: FLUTICASONE/UMECLIDIN/VILANTER(200-62.5-25 TRELEGY ELLIPTA) INAHLER IH SCH (10:52)
[2021-10-17] MEDS: MEROPENEM 500 MG in DEXTROSE 5%-WATER 100 ML IVPB SCH (15:23)
[2021-10-17] MEDS: DEXTROSE 10%-WATER - 1,000 ML IV SCH (17:34)
[2021-10-17] MEDS: OLANZapine 5 MG TABLET PO SCH (22:04)
[2021-10-17] MEDS: LIDOCAINE PATCH REMOVAL MC SCH (22:04)
[2021-10-17] MEDS: ATORVASTATIN CA 20 MG TABLET (FP) PO SCH (22:04)
[2021-10-18] MEDS: oxyCODONE HCL 5 MG TABLET PO PRN (00:13)
[2021-10-18] MEDS: PETROLATUM, WHITE 30 GM TUBE TP SCH ×3 (06:04→21:24)
[2021-10-18] MEDS: INSULIN SLIDING SCALE (NOVOLOG) 1 VIAL SQ SCH ×4 (06:07→21:41)
[2021-10-18 09:10] LABS: BASO % 0.5 % (0-2.0); EOS % 0.8 % (0-4.5); HEMATOCRIT 24.9 % (35.4-49); HEMOGLOBIN 8.2 GM/dL (11.7-16.9); LYMPH % 7.9 % (8-40); MCHC 32.9 g/dl (32.0-35.9); MEAN CELL VOLUME 88.1 fl (80-96); MEAN PLT VOLUME 7.4 fl (7.5-11.1); MONO % 7.6 % (3.8-10.2); NEUT % 83.2 % (42.8-82.8); PLATELET COUNT 71 10^3/uL (134-434); RBC 2.82 M/mm3 (4.00-5.60); WHITE BLOOD COUNT 5.1 K/mm3 (4.0-10.0)
[2021-10-18 10:03] LABS: ALBUMIN 1.7 g/dl (3.4-5.0); BILIRUBIN,TOTAL 0.6 mg/dL (0.2-1); BLOOD UREA NITROGEN 26.8 mg/dL (7-18); CALCIUM 7.5 mg/dL (8.5-10.1); CREATININE 2.5 mg/dL (0.55-1.3); TOT PROT 5.6 g/dl (6.4-8.2)
[2021-10-18] MEDS: PANTOPRAZOLE 40 MG TABLET PO SCH (10:42)
[2021-10-18] MEDS: METOPROLOL TARTRATE 25 MG TABLET (FP) PO SCH ×2 (10:42→21:24)
[2021-10-18] MEDS: AMINO ACIDS/PROTEIN HYDROLYS 30 ML LIQUID.PKT PO SCH (10:42)
[2021-10-18] MEDS: FOLIC ACID 1 MG TABLET (FP) PO SCH (10:42)
[2021-10-18] MEDS: SERTRALINE HCL 25 MG TABLET (FP) PO SCH (10:42)
[2021-10-18] MEDS: FUROSEMIDE 40 MG TABLET (FP) PO SCH (10:42)
[2021-10-18] MEDS: amLODIPine BESYLATE 10 MG TABLET (FP) PO SCH (10:42)
[2021-10-18] MEDS: NICOTINE 7 MG/24 HOURS TOPICAL PATCH TD SCH (10:43)
[2021-10-18] MEDS: LIDOCAINE 5% TOPICAL PATCH TP SCH (10:43)
[2021-10-18] MEDS: COLLAGENASE CLOSTRIDIUM HIST. 30 GRAMS TUBE TP SCH (10:44)
[2021-10-18] MEDS: SACUBITRIL/VALSARTAN 24 MG-26 MG TABLET PO SCH ×2 (10:44→21:24)
[2021-10-18] MEDS: FLUTICASONE/UMECLIDIN/VILANTER(200-62.5-25 TRELEGY ELLIPTA) INAHLER IH SCH (10:51)
[2021-10-18] MEDS: MEROPENEM 500 MG in DEXTROSE 5%-WATER 100 ML IVPB SCH (13:28)
[2021-10-18] MEDS: DEXTROSE 10%-WATER - 1,000 ML IV SCH (17:59)
[2021-10-18] MEDS: OLANZapine 5 MG TABLET PO SCH (21:24)
[2021-10-18] MEDS: ATORVASTATIN CA 20 MG TABLET (FP) PO SCH (21:24)
[2021-10-18] MEDS: LIDOCAINE PATCH REMOVAL MC SCH (21:24)
[2021-10-19] MEDS: oxyCODONE HCL 5 MG TABLET PO PRN (02:28)
[2021-10-19] MEDS: INSULIN SLIDING SCALE (NOVOLOG) 1 VIAL SQ SCH ×4 (06:08→21:41)
[2021-10-19] MEDS: PETROLATUM, WHITE 30 GM TUBE TP SCH ×3 (06:08→21:34)
[2021-10-19] MEDS: AMINO ACIDS/PROTEIN HYDROLYS 30 ML LIQUID.PKT PO SCH (08:12)
[2021-10-19] MEDS: DEXTROSE 10%-WATER - 1,000 ML IV SCH (08:57)
[2021-10-19] MEDS: SACUBITRIL/VALSARTAN 24 MG-26 MG TABLET PO SCH ×2 (09:20→21:32)
[2021-10-19] MEDS: FUROSEMIDE 40 MG TABLET (FP) PO SCH (09:20)
[2021-10-19] MEDS: FOLIC ACID 1 MG TABLET (FP) PO SCH (09:20)
[2021-10-19] MEDS: amLODIPine BESYLATE 10 MG TABLET (FP) PO SCH (09:21)
[2021-10-19] MEDS: FLUTICASONE/UMECLIDIN/VILANTER(200-62.5-25 TRELEGY ELLIPTA) INAHLER IH SCH (09:21)
[2021-10-19] MEDS: NICOTINE 7 MG/24 HOURS TOPICAL PATCH TD SCH (09:21)
[2021-10-19] MEDS: SERTRALINE HCL 25 MG TABLET (FP) PO SCH (09:21)
[2021-10-19] MEDS: PANTOPRAZOLE 40 MG TABLET PO SCH (09:21)
[2021-10-19] MEDS: METOPROLOL TARTRATE 25 MG TABLET (FP) PO SCH ×2 (09:21→21:31)
[2021-10-19] MEDS: LIDOCAINE 5% TOPICAL PATCH TP SCH (09:22)
[2021-10-19] MEDS: MEROPENEM 500 MG in DEXTROSE 5%-WATER 100 ML IVPB SCH (11:43)
[2021-10-19] MEDS: LIDOCAINE 2.5%/PRILOCAINE 2.5% 30 GRAM TUBE TP PRN (12:28)
[2021-10-19] MEDS ORDERED: SODIUM CHLORIDE 250 ML IV PRN ×2 (12:40)
[2021-10-19] MEDS ORDERED: EPOETIN ALFA-EPBX 10,000 UNIT/ML VIAL IVPUSH ONE (12:45)
[2021-10-19 15:59] VITALS: BMI 15.7
[2021-10-19 16:53] LABS: BASO % 1.1 % (0-2.0); EOS % 2.2 % (0-4.5); HEMATOCRIT 23.8 % (35.4-49); HEMOGLOBIN 7.8 GM/dL (11.7-16.9); LYMPH % 10.9 % (8-40); MCH 28.8 pg (25.7-33.7); MCHC 32.8 g/dl (32.0-35.9); MEAN CELL VOLUME 87.8 fl (80-96); MEAN PLT VOLUME 7.7 fl (7.5-11.1); NEUT % 77.8 % (42.8-82.8); PLATELET COUNT 76 10^3/uL (134-434); RBC 2.71 M/mm3 (4.00-5.60); RDW 16.7 % (11.9-15.9); WHITE BLOOD COUNT 3.3 K/mm3 (4.0-10.0)
[2021-10-19 17:04] LABS: CALCIUM 7.3 mg/dL (8.5-10.1)
[2021-10-19 17:05] LABS: ALBUMIN 1.8 g/dl (3.4-5.0); BLOOD UREA NITROGEN 41.8 mg/dL (7-18)
[2021-10-19 17:10] LABS: BILIRUBIN,TOTAL 0.6 mg/dL (0.2-1); TOT PROT 5.5 g/dl (6.4-8.2)
[2021-10-19] MEDS: COLLAGENASE CLOSTRIDIUM HIST. 30 GRAMS TUBE TP SCH (18:47)
[2021-10-19] MEDS: ACETAMINOPHEN 325 MG TABLET (FP) PO PRN (21:28)
[2021-10-19] MEDS: OLANZapine 5 MG TABLET PO SCH (21:29)
[2021-10-19] MEDS: MELATONIN 5 MG TABLETS PO PRN (21:30)
[2021-10-19] MEDS: LIDOCAINE PATCH REMOVAL MC SCH (21:33)
[2021-10-19] MEDS: ATORVASTATIN CA 20 MG TABLET (FP) PO SCH (21:34)
[2021-10-20] MEDS: ACETAMINOPHEN 325 MG TABLET (FP) PO PRN (03:28)
[2021-10-20] MEDS ORDERED: DOCUSATE SODIUM 100 MG CAPSULE (FP) PO PRN (05:28)
[2021-10-20] MEDS: PETROLATUM, WHITE 30 GM TUBE TP SCH ×3 (06:05→21:06)
[2021-10-20] MEDS: INSULIN SLIDING SCALE (NOVOLOG) 1 VIAL SQ SCH ×4 (06:05→21:13)
[2021-10-20] MEDS: oxyCODONE HCL 5 MG TABLET PO PRN ×2 (06:56→14:02)
[2021-10-20] MEDS: SACUBITRIL/VALSARTAN 24 MG-26 MG TABLET PO SCH ×2 (09:49→21:04)
[2021-10-20] MEDS: FOLIC ACID 1 MG TABLET (FP) PO SCH (09:50)
[2021-10-20] MEDS: METOPROLOL TARTRATE 25 MG TABLET (FP) PO SCH ×2 (09:50→21:03)
[2021-10-20] MEDS: amLODIPine BESYLATE 10 MG TABLET (FP) PO SCH (09:50)
[2021-10-20] MEDS: FUROSEMIDE 40 MG TABLET (FP) PO SCH (09:50)
[2021-10-20] MEDS: PANTOPRAZOLE 40 MG TABLET PO SCH (09:51)
[2021-10-20] MEDS: SERTRALINE HCL 25 MG TABLET (FP) PO SCH (09:51)
[2021-10-20] MEDS: AMINO ACIDS/PROTEIN HYDROLYS 30 ML LIQUID.PKT PO SCH (09:51)
[2021-10-20] MEDS: NICOTINE 7 MG/24 HOURS TOPICAL PATCH TD SCH (09:52)
[2021-10-20] MEDS: LIDOCAINE 5% TOPICAL PATCH TP SCH (09:52)
[2021-10-20] MEDS: FLUTICASONE/UMECLIDIN/VILANTER(200-62.5-25 TRELEGY ELLIPTA) INAHLER IH SCH (09:52)
[2021-10-20] MEDS ORDERED: DEXTROSE 4 GM TAB.CHEW PO PRN ×2 (11:26→11:51)
[2021-10-20] MEDS: COLLAGENASE CLOSTRIDIUM HIST. 30 GRAMS TUBE TP SCH (11:43)
[2021-10-20] MEDS: ATORVASTATIN CA 20 MG TABLET (FP) PO SCH (21:03)
[2021-10-20] MEDS: OLANZapine 5 MG TABLET PO SCH (21:04)
[2021-10-20] MEDS: LIDOCAINE PATCH REMOVAL MC SCH (21:06)
[2021-10-20] MEDS: MELATONIN 5 MG TABLETS PO PRN (21:07)
[2021-10-21] MEDS: PETROLATUM, WHITE 30 GM TUBE TP SCH ×3 (05:34→22:26)
[2021-10-21] MEDS: INSULIN SLIDING SCALE (NOVOLOG) 1 VIAL SQ SCH ×4 (06:20→22:25)
[2021-10-21] MEDS: oxyCODONE HCL 5 MG TABLET PO PRN ×2 (08:04→22:32)
[2021-10-21] MEDS: AMINO ACIDS/PROTEIN HYDROLYS 30 ML LIQUID.PKT PO SCH (09:19)
[2021-10-21 10:08] LABS: SARS-CoV-2 NAA Not Detected (Not Detected)
[2021-10-21] MEDS: METOPROLOL TARTRATE 25 MG TABLET (FP) PO SCH ×2 (10:43→22:20)
[2021-10-21] MEDS: SACUBITRIL/VALSARTAN 24 MG-26 MG TABLET PO SCH ×2 (10:43→22:20)
[2021-10-21] MEDS: FOLIC ACID 1 MG TABLET (FP) PO SCH (10:43)
[2021-10-21] MEDS: FUROSEMIDE 40 MG TABLET (FP) PO SCH (10:43)
[2021-10-21] MEDS: PANTOPRAZOLE 40 MG TABLET PO SCH (10:44)
[2021-10-21] MEDS: amLODIPine BESYLATE 10 MG TABLET (FP) PO SCH (10:44)
[2021-10-21] MEDS: SERTRALINE HCL 25 MG TABLET (FP) PO SCH (10:44)
[2021-10-21] MEDS: NICOTINE 7 MG/24 HOURS TOPICAL PATCH TD SCH (11:48)
[2021-10-21] MEDS: LIDOCAINE 5% TOPICAL PATCH TP SCH (12:02)
[2021-10-21] MEDS: FLUTICASONE/UMECLIDIN/VILANTER(200-62.5-25 TRELEGY ELLIPTA) INAHLER IH SCH (12:04)
[2021-10-21] MEDS: COLLAGENASE CLOSTRIDIUM HIST. 30 GRAMS TUBE TP SCH (12:06)
[2021-10-21] MEDS ORDERED: EPOETIN ALFA-EPBX 10,000 UNIT/ML VIAL IVPUSH ONE (13:00)
[2021-10-21] MEDS ORDERED: SODIUM CHLORIDE 250 ML IV PRN (13:00)
[2021-10-21 14:22] LABS: HEMATOCRIT 24.8 % (35.4-49); HEMOGLOBIN 8.2 GM/dL (11.7-16.9); MEAN CELL VOLUME 88.1 fl (80-96); PLATELET COUNT 70 10^3/uL (134-434); RBC 2.82 M/mm3 (4.00-5.60); RDW 16.7 % (11.9-15.9)
[2021-10-21 14:25] LABS: WHITE BLOOD COUNT 1.6 K/mm3 (4.0-10.0)
[2021-10-21 14:49] LABS: ANISOCYTOSIS 0; HELMET CELLS 0; HOWELL-JOLLY BODIES 0; MACROCYTOSIS 0; OVALOCYTE 0; ROULEAU 0; SICKELED CELLS 0; TARGET CELLS 0; TEAR DROP CELLS 0; TOXIC GRANULATION 0
[2021-10-21 15:18] LABS: CALCIUM 7.5 mg/dL (8.5-10.1)
[2021-10-21 15:19] LABS: BLOOD UREA NITROGEN 37.3 mg/dL (7-18)
[2021-10-21 15:22] LABS: CREATININE 2.5 mg/dL (0.55-1.3)
[2021-10-21] MEDS: ATORVASTATIN CA 20 MG TABLET (FP) PO SCH (22:20)
[2021-10-21] MEDS: LIDOCAINE PATCH REMOVAL MC SCH (22:20)
[2021-10-21] MEDS: OLANZapine 5 MG TABLET PO SCH (22:20)
[2021-10-21] MEDS: ACETAMINOPHEN 325 MG TABLET (FP) PO PRN (22:32)
[2021-10-21 23:04] VITALS: BP 146/75; PULSE 72; TEMP 97.8
== END 2021-10-22 00:30 | DRG 380 ==
LOC: JER 16:30 → JERBED 17:02 → J8W 10-14 18:57
PROVIDERS: ADMIT Internal Medicine; ATTEND Internal Medicine
PROC: 30233N1 Transfusion of Nonautologous Red Blood Cells into Peripheral Vein, Percutaneous Approach (ICD-10-PCS; principal; 2021-10-13)
PROC: 5A1D70Z Performance of Urinary Filtration, Intermittent, Less than 6 Hours Per Day (ICD-10-PCS; 2021-10-16)
DX: L89.154 Pressure ulcer of sacral region, stage 4 (principal); E43 Unspecified severe protein-calorie malnutrition; I13.2 Hypertensive heart and chronic kidney disease with heart failure and with stage 5 chronic kidney disease, or end stage renal disease; L89.223 Pressure ulcer of left hip, stage 3; N18.6 End stage renal disease; D63.1 Anemia in chronic kidney disease; E16.2 Hypoglycemia, unspecified; R64 Cachexia; Z68.1 Body mass index [BMI] 19.9 or less, adult; D72.819 Decreased white blood cell count, unspecified; R74.01 Elevation of levels of liver transaminase levels; Z99.2 Dependence on renal dialysis; D69.6 Thrombocytopenia, unspecified
CPT/HCPCS: 36415; 36430; 36511; 71045-TC-FY; 80048; 80053; 82607; 82728; 82746; 82962; 83540; 83550; 83615; 83735; 84100; 84439; 84443; 84484; 85025; 85027; 85045; 85610; 85730; 86803; 86850; 86900; 86901; 86922; 87040; 87340; 87522; 93005; 93010; 99285-25; C9803; E0372; G0480; P9038; P9058; Q5106; U0003; U0005

== ENCOUNTER 2021-11-03 09:04 | Inpatient (IN) | payer OTHER ==
[2021-11-03] MEDS ORDERED: CEFEPIME HCL/D5W 1 GM/50 ML BAG IVPB ONE (10:03)
[2021-11-03] MEDS ORDERED: VANCOMYCIN 1 GM in D5W (PRE-DOCKED) 1,000 MG/250 ML IVPB ONE (10:05)
[2021-11-03 10:07] LABS: VENOUS BASE EXCESS 2.6 mmol/L (-2-2); VENOUS O2 SATURATION 49.6 % (70-80); VENOUS PCO2 64.6 mmHg (38-52); VENOUS PH 7.288 (7.310-7.410)
[2021-11-03 10:15] LABS: INR 1.64 (0.83-1.09)
[2021-11-03] MEDS ORDERED: CEFEPIME 1 GM/100 ML BAG IVPB ONE (10:16)
[2021-11-03 10:17] LABS: BASO % 0.7 % (0-2.0); EOS % 0.1 % (0-4.5); HEMATOCRIT 27.3 % (35.4-49); HEMOGLOBIN 8.8 GM/dL (11.7-16.9); LYMPH % 24.5 % (8-40); MCH 29.5 pg (25.7-33.7); MCHC 32.3 g/dl (32.0-35.9); MEAN CELL VOLUME 91.2 fl (80-96); MEAN PLT VOLUME 9.1 fl (7.5-11.1); MONO % 7.8 % (3.8-10.2); NEUT % 66.9 % (42.8-82.8); PLATELET COUNT 53 10^3/uL (134-434); RBC 2.99 M/mm3 (4.00-5.60); RDW 18.2 % (11.9-15.9)
[2021-11-03 10:18] LABS: ACTIVATED PTT 36.8 SECONDS (25.2-36.5)
[2021-11-03 10:22] LABS: WHITE BLOOD COUNT 1.4 K/mm3 (4.0-10.0)
[2021-11-03 10:35] LABS: CHLORIDE 96 mmol/L (98-107); SODIUM 132 mmol/L (136-145)
[2021-11-03 10:40] LABS: ANION GAP 5 MMOL/L (8-16); BLOOD UREA NITROGEN 30.9 mg/dL (7-18); CALCIUM 8.3 mg/dL (8.5-10.1); CO2 31 mmol/L (21-32); MAGNESIUM 2.3 mg/dL (1.8-2.4)
[2021-11-03 10:42] LABS: CREATININE 2.9 mg/dL (0.55-1.3)
[2021-11-03 10:43] LABS: SGPT/ALT 92 U/L (13-61)
[2021-11-03 10:44] LABS: ALK PHOS 924 U/L (45-117); SGOT/AST 483 U/L (15-37); TOT PROT 5.8 g/dl (6.4-8.2)
[2021-11-03 10:45] LABS: BILIRUBIN,TOTAL 0.9 mg/dL (0.2-1)
[2021-11-03] MEDS ORDERED: VANCOMYCIN 1 GRAM (PRE-DOCKED) 1,000 MG/250 ML BAG IVPB ONE (10:49)
[2021-11-03] MEDS ORDERED: DEXTROSE 10%-WATER - 1,000 ML IV SCH (11:00)
[2021-11-03 11:14] LABS: GLUCOSE,RANDOM 12 mg/dL (74-106); N-TERMINAL BNP > 175000.0 pg/ml (5-125)
[2021-11-03 11:20] LABS: ANISOCYTOSIS 0; HELMET CELLS 0; HOWELL-JOLLY BODIES 0; MACROCYTOSIS 0; OVALOCYTE 0; ROULEAU 0; SICKELED CELLS 0; TARGET CELLS 0; TEAR DROP CELLS 0; TOXIC GRANULATION 0
[2021-11-03 13:15] LABS: EPI CELLS 13 /uL (0-25.1); HYALINE CASTS 1 /uL (0-3.1); PH,URINE 7.5 (5.0-8.0); URINE APPEARANCE CLEAR; URINE BACTERIA 5 /uL (0-1359); URINE BILIRUBIN NEGATIVE (NEGATIVE); URINE COLOR DK YELLOW; URINE GLUCOSE (UA) NEGATIVE (NEGATIVE); URINE KETONE NEGATIVE (NEGATIVE); URINE LEUK ESTERASE NEGATIVE (NEGATIVE); URINE NITRITE NEGATIVE (NEGATIVE); URINE PROTEIN 2+ (NEGATIVE); URINE RBC 2 /uL (0-23.9); URINE WBC 8 /uL (0-25.8)
[2021-11-03] MEDS ORDERED: DEXTROSE 5%-WATER - 1,000 ML IV SCH (14:45)
[2021-11-03] MEDS ORDERED: DOCUSATE SODIUM 100 MG CAPSULE (FP) PO PRN (14:47)
[2021-11-03] MEDS ORDERED: ACETAMINOPHEN 325 MG TABLET (FP) PO PRN (14:47)
[2021-11-03] MEDS ORDERED: SODIUM CHLORIDE 250 ML IV PRN (17:34)
[2021-11-03] MEDS ORDERED: EPOETIN ALFA-EPBX 4,000 UNIT/ML VIAL SQ ONE (17:34)
[2021-11-03] MEDS ORDERED: DEXTROSE 5%-WATER 100 ML IVPB ONE (19:16)
[2021-11-03] MEDS: MEROPENEM 500 MG in DEXTROSE 5%-WATER 100 ML IVPB SCH (19:16)
[2021-11-03] MEDS ORDERED: MEROPENEM 500 MG VIAL (RESTRICTED TO ID) IVPB ONE (19:16)
[2021-11-03] MEDS: ALBUMIN HUMAN 25% 12.5 GM/50 ML VIAL IV SCH ×4 (21:47→22:57)
[2021-11-03] MEDS: SACUBITRIL/VALSARTAN 24 MG-26 MG TABLET PO SCH (21:48)
[2021-11-03] MEDS: ATORVASTATIN CA 20 MG TABLET (FP) PO SCH (21:48)
[2021-11-03] MEDS: METOPROLOL TARTRATE 25 MG TABLET (FP) PO SCH (21:49)
[2021-11-03] MEDS: hydrALAZINE HCL 25 MG TABLET (FP) PO SCH (21:49)
[2021-11-03] MEDS: MUPIROCIN 2% TOPICAL OINTMENT FOR DECOLONIZATION NS SCH (21:50)
[2021-11-03] MEDS: CHLORHEXIDINE GLUCONATE 4% CLEANSER FOR DECOLONIZATION TP SCH (23:02)
[2021-11-03] MEDS: BUDESONIDE/FORMETEROL FUMARATE 80/4.5 mcg INHALER IH SCH (23:03)
[2021-11-04] MEDS ORDERED: DEXTROSE 50%-WATER 25 GM/50 ML DISP.SYRIN ONE (00:13)
[2021-11-04] MEDS ORDERED: DEXTROSE 50%-WATER - 25 GM/50 ML VIAL IVPUSH ONE (00:14)
[2021-11-04] MEDS ORDERED: DEXTROSE 50%-WATER 25 GM/50 ML DISP.SYRIN IVPUSH ONE (00:14)
[2021-11-04] MEDS ORDERED: DEXTROSE 5%-WATER - 1,000 ML IV SCH (00:15)
[2021-11-04] MEDS ORDERED: DEXTROSE 5%-WATER 100 ML IVPB ONE ×2 (06:01→13:12)
[2021-11-04] MEDS ORDERED: MEROPENEM 500 MG VIAL (RESTRICTED TO ID) IVPB ONE ×2 (06:01→13:11)
[2021-11-04] MEDS: MEROPENEM 500 MG in DEXTROSE 5%-WATER 100 ML IVPB SCH ×2 (06:16→18:11)
[2021-11-04] MEDS: hydrALAZINE HCL 25 MG TABLET (FP) PO SCH ×3 (06:20→21:37)
[2021-11-04] MEDS: MUPIROCIN 2% TOPICAL OINTMENT FOR DECOLONIZATION NS SCH ×2 (10:08→21:36)
[2021-11-04] MEDS: METOPROLOL TARTRATE 25 MG TABLET (FP) PO SCH ×2 (10:08→21:35)
[2021-11-04] MEDS: PANTOPRAZOLE 40 MG TABLET PO SCH (10:08)
[2021-11-04] MEDS: SACUBITRIL/VALSARTAN 24 MG-26 MG TABLET PO SCH ×2 (10:08→21:37)
[2021-11-04] MEDS: BUDESONIDE/FORMETEROL FUMARATE 80/4.5 mcg INHALER IH SCH ×2 (10:09→21:38)
[2021-11-04 11:09] LABS: SARS-CoV-2 NAA Not Detected (Not Detected)
[2021-11-04 12:23] LABS: HEMATOCRIT 26.5 % (35.4-49); HEMOGLOBIN 8.6 GM/dL (11.7-16.9); MCH 29.6 pg (25.7-33.7); MCHC 32.4 g/dl (32.0-35.9); MEAN CELL VOLUME 91.4 fl (80-96); RDW 18.3 % (11.9-15.9)
[2021-11-04 12:31] LABS: PLATELET COUNT 29 10^3/uL (134-434)
[2021-11-04 12:51] LABS: ALBUMIN 1.8 g/dl (3.4-5.0); BLOOD UREA NITROGEN 19.8 mg/dL (7-18); CALCIUM 7.3 mg/dL (8.5-10.1)
[2021-11-04 12:54] LABS: PHOSPHOROUS 3.5 mg/dL (2.5-4.9)
[2021-11-04 12:55] LABS: CREATININE 2.1 mg/dL (0.55-1.3)
[2021-11-04 12:56] LABS: BILIRUBIN,TOTAL 1.3 mg/dL (0.2-1)
[2021-11-04] MEDS: traMADol HCL 50 MG TABLET PO PRN ×2 (13:49→20:30)
[2021-11-04] MEDS: NICOTINE 7 MG/24 HOURS TOPICAL PATCH TD SCH (14:11)
[2021-11-04] MEDS: AMINO ACIDS/PROTEIN HYDROLYS 30 ML LIQUID.PKT PO SCH (18:10)
[2021-11-04 21:32] LABS: BASO % 0.2 % (0-2.0); HEMATOCRIT 22.3 % (35.4-49); HEMOGLOBIN 7.2 GM/dL (11.7-16.9); LYMPH % 2.8 % (8-40); MCH 29.4 pg (25.7-33.7); MCHC 32.5 g/dl (32.0-35.9); MEAN CELL VOLUME 90.7 fl (80-96); MEAN PLT VOLUME 10.4 fl (7.5-11.1); MONO % 3.1 % (3.8-10.2); NEUT % 93.9 % (42.8-82.8); RBC 2.46 M/mm3 (4.00-5.60); WHITE BLOOD COUNT 9.4 K/mm3 (4.0-10.0)
[2021-11-04] MEDS: ATORVASTATIN CA 20 MG TABLET (FP) PO SCH (21:35)
[2021-11-04] MEDS: CHLORHEXIDINE GLUCONATE 4% CLEANSER FOR DECOLONIZATION TP SCH (21:36)
[2021-11-04 21:39] LABS: PLATELET COUNT 26 10^3/uL (134-434)
[2021-11-04 21:41] LABS: INR 2.92 (0.83-1.09)
[2021-11-04 22:24] LABS: PLATELET ESTIMATE DECREASED
[2021-11-05] MEDS ORDERED: DEXTROSE 50%-WATER - 25 GM/50 ML VIAL IVPUSH ONE (05:51)
[2021-11-05] MEDS ORDERED: DEXTROSE 5%-NORMAL SALINE 1,000 ML IV SCH (06:00)
[2021-11-05] MEDS ORDERED: DEXTROSE 50%-WATER 25 GM/50 ML DISP.SYRIN ONE (06:37)
[2021-11-05] MEDS ORDERED: DEXTROSE 5%-WATER 100 ML IVPB ONE ×2 (06:37→14:53)
[2021-11-05] MEDS ORDERED: MEROPENEM 500 MG VIAL (RESTRICTED TO ID) IVPB ONE ×2 (06:37→14:53)
[2021-11-05] MEDS: MEROPENEM 500 MG in DEXTROSE 5%-WATER 100 ML IVPB SCH ×2 (06:50→17:23)
[2021-11-05] MEDS: hydrALAZINE HCL 25 MG TABLET (FP) PO SCH ×2 (06:50→17:20)
[2021-11-05] MEDS ORDERED: EPOETIN ALFA-EPBX 4,000 UNIT/ML VIAL SQ ONE (07:00)
[2021-11-05] MEDS ORDERED: SODIUM CHLORIDE 250 ML IV PRN (07:00)
[2021-11-05 07:48] LABS: PHOSPHOROUS 4.1 mg/dL (2.5-4.9)
[2021-11-05 07:49] LABS: ALBUMIN 1.9 g/dl (3.4-5.0); BLOOD UREA NITROGEN 27.7 mg/dL (7-18)
[2021-11-05 07:50] LABS: BILIRUBIN,TOTAL 1.2 mg/dL (0.2-1); TOT PROT 5.3 g/dl (6.4-8.2)
[2021-11-05 07:51] LABS: MAGNESIUM 2.2 mg/dL (1.8-2.4)
[2021-11-05 07:52] LABS: CREATININE 2.4 mg/dL (0.55-1.3)
[2021-11-05] MEDS: AMINO ACIDS/PROTEIN HYDROLYS 30 ML LIQUID.PKT PO SCH ×2 (08:45→17:23)
[2021-11-05] MEDS: PANTOPRAZOLE 40 MG TABLET PO SCH (09:18)
[2021-11-05] MEDS: BUDESONIDE/FORMETEROL FUMARATE 80/4.5 mcg INHALER IH SCH ×2 (09:18→21:46)
[2021-11-05] MEDS: MUPIROCIN 2% TOPICAL OINTMENT FOR DECOLONIZATION NS SCH (09:18)
[2021-11-05] MEDS: traMADol HCL 50 MG TABLET PO PRN (10:08)
[2021-11-05] MEDS: NICOTINE 7 MG/24 HOURS TOPICAL PATCH TD SCH (10:50)
[2021-11-05 12:29] LABS: BASO % 0.4 % (0-2.0); EOS % 0.1 % (0-4.5); HEMATOCRIT 22.2 % (35.4-49); HEMOGLOBIN 7.2 GM/dL (11.7-16.9); LYMPH % 5.7 % (8-40); MCH 29.4 pg (25.7-33.7); MCHC 32.2 g/dl (32.0-35.9); MEAN CELL VOLUME 91.3 fl (80-96); MEAN PLT VOLUME 10.5 fl (7.5-11.1); MONO % 4.5 % (3.8-10.2); NEUT % 89.3 % (42.8-82.8); RBC 2.44 M/mm3 (4.00-5.60); RDW 18.4 % (11.9-15.9); WHITE BLOOD COUNT 5.7 K/mm3 (4.0-10.0)
[2021-11-05 12:34] LABS: PLATELET COUNT 27 10^3/uL (134-434)
[2021-11-05 13:03] LABS: CALCIUM 7.9 mg/dL (8.5-10.1)
[2021-11-05 13:04] LABS: ALBUMIN 1.9 g/dl (3.4-5.0); BLOOD UREA NITROGEN 29.6 mg/dL (7-18)
[2021-11-05 13:07] LABS: CREATININE 2.4 mg/dL (0.55-1.3)
[2021-11-05 13:09] LABS: TOT PROT 5.2 g/dl (6.4-8.2)
[2021-11-05 14:31] LABS: INR 2.23 (0.83-1.09); PROTHROMBIN TIME (PATIENT) 25.8 SEC (9.7-13.0)
[2021-11-05 14:34] LABS: ACTIVATED PTT 40.5 SECONDS (25.2-36.5)
[2021-11-05] MEDS: SACUBITRIL/VALSARTAN 24 MG-26 MG TABLET PO SCH ×2 (16:40→21:19)
[2021-11-05] MEDS: METOPROLOL TARTRATE 25 MG TABLET (FP) PO SCH ×2 (16:40→21:19)
[2021-11-05] MEDS ORDERED: DOCUSATE SODIUM 100 MG CAPSULE (FP) PO PRN (18:15)
[2021-11-05] MEDS: ACETAMINOPHEN 325 MG TABLET (FP) PO PRN (18:36)
[2021-11-05] MEDS: DEXTROSE 5%-NORMAL SALINE 1,000 ML IV SCH (18:37)
[2021-11-05] MEDS: PHYTONADIONE 10 MG/1 ML AMP SQ SCH (18:37)
[2021-11-05] MEDS: hydrALAZINE HCL 50 MG TABLET (FP) PO SCH (21:19)
[2021-11-05] MEDS: ATORVASTATIN CA 20 MG TABLET (FP) PO SCH (21:19)
[2021-11-05] MEDS ORDERED: MUPIROCIN 2% TOPICAL OINTMENT FOR DECOLONIZATION NS SCH (22:00)
[2021-11-05] MEDS ORDERED: CHLORHEXIDINE GLUCONATE 4% CLEANSER FOR DECOLONIZATION TP SCH (22:00)
[2021-11-06] MEDS: traMADol HCL 50 MG TABLET PO PRN ×3 (02:42→21:22)
[2021-11-06] MEDS ORDERED: DEXTROSE 5%-WATER 100 ML IVPB ONE ×2 (06:15→17:54)
[2021-11-06] MEDS ORDERED: MEROPENEM 500 MG VIAL (RESTRICTED TO ID) IVPB ONE ×2 (06:15→17:54)
[2021-11-06] MEDS: MEROPENEM 500 MG in DEXTROSE 5%-WATER 100 ML IVPB SCH ×3 (06:18→18:36)
[2021-11-06] MEDS: hydrALAZINE HCL 50 MG TABLET (FP) PO SCH ×2 (06:18→15:44)
[2021-11-06] MEDS: PANTOPRAZOLE 40 MG TABLET PO SCH (09:33)
[2021-11-06] MEDS: BUDESONIDE/FORMETEROL FUMARATE 80/4.5 mcg INHALER IH SCH ×2 (09:33→22:08)
[2021-11-06] MEDS: AMINO ACIDS/PROTEIN HYDROLYS 30 ML LIQUID.PKT PO SCH ×2 (09:33→18:21)
[2021-11-06] MEDS: PHYTONADIONE 10 MG/1 ML AMP SQ SCH (09:34)
[2021-11-06] MEDS: METOPROLOL TARTRATE 25 MG TABLET (FP) PO SCH ×2 (09:34→22:05)
[2021-11-06] MEDS: NICOTINE 7 MG/24 HOURS TOPICAL PATCH TD SCH (09:36)
[2021-11-06] MEDS: SACUBITRIL/VALSARTAN 24 MG-26 MG TABLET PO SCH ×2 (09:36→22:06)
[2021-11-06] MEDS ORDERED: ONDANSETRON 4 MG/2 ML VIAL IVPUSH PRN (12:22)
[2021-11-06] MEDS: DEXTROSE 5%-NORMAL SALINE 1,000 ML IV SCH (12:52)
[2021-11-06 21:05] LABS: BASO % 0.4 % (0-2.0); EOS % 0.3 % (0-4.5); HEMOGLOBIN 7.1 GM/dL (11.7-16.9); LYMPH % 9.5 % (8-40); MCH 29.7 pg (25.7-33.7); MCHC 32.2 g/dl (32.0-35.9); MEAN CELL VOLUME 92.4 fl (80-96); MEAN PLT VOLUME 8.7 fl (7.5-11.1); MONO % 3.8 % (3.8-10.2); RBC 2.38 M/mm3 (4.00-5.60); RDW 18.6 % (11.9-15.9); WHITE BLOOD COUNT 3.3 K/mm3 (4.0-10.0)
[2021-11-06] MEDS: ATORVASTATIN CA 20 MG TABLET (FP) PO SCH (21:23)
[2021-11-06 21:27] LABS: PLATELET COUNT 19 10^3/uL (134-434)
[2021-11-07] MEDS: hydrALAZINE HCL 50 MG TABLET (FP) PO SCH ×2 (01:05→06:54)
[2021-11-07] MEDS ORDERED: MEROPENEM 500 MG VIAL (RESTRICTED TO ID) IVPB ONE ×2 (05:25→17:38)
[2021-11-07] MEDS ORDERED: DEXTROSE 5%-WATER 100 ML IVPB ONE ×2 (05:25→17:38)
[2021-11-07] MEDS: DEXTROSE 5%-NORMAL SALINE 1,000 ML IV SCH (05:47)
[2021-11-07] MEDS: MEROPENEM 500 MG in DEXTROSE 5%-WATER 100 ML IVPB SCH ×2 (05:48→18:02)
[2021-11-07] MEDS ORDERED: EPOETIN ALFA-EPBX 4,000 UNIT/ML VIAL SQ ONE (07:00)
[2021-11-07] MEDS ORDERED: SODIUM CHLORIDE 250 ML IV PRN (07:00)
[2021-11-07] MEDS: AMINO ACIDS/PROTEIN HYDROLYS 30 ML LIQUID.PKT PO SCH ×2 (08:55→18:01)
[2021-11-07] MEDS ORDERED: BISACODYL 5 MG TABLET.DR (FP) PO ONE (12:54)
[2021-11-07] MEDS: traMADol HCL 50 MG TABLET PO PRN (14:10)
[2021-11-07] MEDS: PANTOPRAZOLE 40 MG TABLET PO SCH (14:10)
[2021-11-07] MEDS: PHYTONADIONE 10 MG/1 ML AMP SQ SCH ×2 (14:13→15:36)
[2021-11-07] MEDS: METOPROLOL TARTRATE 25 MG TABLET (FP) PO SCH ×2 (14:13→21:44)
[2021-11-07] MEDS: NICOTINE 7 MG/24 HOURS TOPICAL PATCH TD SCH (14:13)
[2021-11-07] MEDS: SACUBITRIL/VALSARTAN 24 MG-26 MG TABLET PO SCH ×2 (14:16→21:44)
[2021-11-07] MEDS: BUDESONIDE/FORMETEROL FUMARATE 80/4.5 mcg INHALER IH SCH ×2 (14:23→21:45)
[2021-11-07] MEDS: COLLAGENASE CLOSTRIDIUM HIST. 30 GRAMS TUBE TP SCH (15:35)
[2021-11-07 17:52] VITALS: BMI 17.4
[2021-11-07] MEDS: ACETAMINOPHEN 325 MG TABLET (FP) PO PRN (18:01)
[2021-11-07] MEDS: ATORVASTATIN CA 20 MG TABLET (FP) PO SCH (21:44)
[2021-11-08] MEDS ORDERED: MEROPENEM 500 MG VIAL (RESTRICTED TO ID) IVPB ONE ×2 (05:03→17:06)
[2021-11-08] MEDS ORDERED: DEXTROSE 5%-WATER 100 ML IVPB ONE ×2 (05:03→17:07)
[2021-11-08] MEDS: MEROPENEM 500 MG in DEXTROSE 5%-WATER 100 ML IVPB SCH ×2 (06:53→17:16)
[2021-11-08 09:10] LABS: BASO % 0.3 % (0-2.0); EOS % 0.3 % (0-4.5); HEMATOCRIT 22.1 % (35.4-49); HEMOGLOBIN 7.1 GM/dL (11.7-16.9); LYMPH % 16.4 % (8-40); MCH 29.6 pg (25.7-33.7); MCHC 31.9 g/dl (32.0-35.9); MEAN CELL VOLUME 92.9 fl (80-96); MEAN PLT VOLUME 8.3 fl (7.5-11.1); MONO % 10.4 % (3.8-10.2); NEUT % 72.6 % (42.8-82.8); RBC 2.38 M/mm3 (4.00-5.60); RDW 18.4 % (11.9-15.9); WHITE BLOOD COUNT 2.3 K/mm3 (4.0-10.0)
[2021-11-08 09:31] LABS: CHLORIDE 106 mmol/L (98-107); SODIUM 143 mmol/L (136-145)
[2021-11-08 09:36] LABS: ALBUMIN 1.9 g/dl (3.4-5.0); ANION GAP 5 MMOL/L (8-16); BLOOD UREA NITROGEN 31.7 mg/dL (7-18); CALCIUM 8.4 mg/dL (8.5-10.1); CO2 31 mmol/L (21-32)
[2021-11-08 09:39] LABS: PHOSPHOROUS 2.7 mg/dL (2.5-4.9); SGPT/ALT 62 U/L (13-61)
[2021-11-08 09:40] LABS: CREATININE 1.9 mg/dL (0.55-1.3); SGOT/AST 208 U/L (15-37)
[2021-11-08 09:41] LABS: BILIRUBIN,TOTAL 1.4 mg/dL (0.2-1); TOT PROT 5.3 g/dl (6.4-8.2)
[2021-11-08] MEDS: NICOTINE 7 MG/24 HOURS TOPICAL PATCH TD SCH (09:51)
[2021-11-08] MEDS: METOPROLOL TARTRATE 25 MG TABLET (FP) PO SCH ×2 (09:51→21:12)
[2021-11-08] MEDS: AMINO ACIDS/PROTEIN HYDROLYS 30 ML LIQUID.PKT PO SCH ×2 (09:51→17:03)
[2021-11-08] MEDS: PANTOPRAZOLE 40 MG TABLET PO SCH (09:51)
[2021-11-08] MEDS: COLLAGENASE CLOSTRIDIUM HIST. 30 GRAMS TUBE TP SCH (09:53)
[2021-11-08] MEDS: BUDESONIDE/FORMETEROL FUMARATE 80/4.5 mcg INHALER IH SCH ×2 (09:53→21:13)
[2021-11-08] MEDS: ZINC SULFATE 220 MG CAPSULE (FP) PO SCH (09:56)
[2021-11-08] MEDS: VITAMIN B COMP W-C 1 EA TABLET (NEPHRO-VITE) PO SCH (09:56)
[2021-11-08] MEDS: SACUBITRIL/VALSARTAN 24 MG-26 MG TABLET PO SCH ×2 (09:57→21:12)
[2021-11-08 09:59] LABS: ALK PHOS 1596 U/L (45-117); GLUCOSE,RANDOM 21 mg/dL (74-106)
[2021-11-08] MEDS ORDERED: DEXTROSE 50%-WATER 25 GM/50 ML DISP.SYRIN IVPUSH ONE (10:06)
[2021-11-08] MEDS ORDERED: POTASSIUM CHLORIDE TABS 20 MEQ TABLET.ER (FP) PO ONE (10:39)
[2021-11-08] MEDS: DEXTROSE 10%-WATER - 1,000 ML IV SCH (11:14)
[2021-11-08 11:41] LABS: PLATELET COUNT 19 10^3/uL (134-434)
[2021-11-08] MEDS: ATORVASTATIN CA 20 MG TABLET (FP) PO SCH (21:12)
[2021-11-09] MEDS ORDERED: DEXTROSE 5%-WATER 100 ML IVPB ONE ×2 (06:01→17:45)
[2021-11-09] MEDS ORDERED: MEROPENEM 500 MG VIAL (RESTRICTED TO ID) IVPB ONE ×2 (06:01→17:45)
[2021-11-09] MEDS: MEROPENEM 500 MG in DEXTROSE 5%-WATER 100 ML IVPB SCH ×2 (06:03→17:50)
[2021-11-09] MEDS: DEXTROSE 10%-WATER - 1,000 ML IV SCH ×2 (09:22→10:50)
[2021-11-09] MEDS: COLLAGENASE CLOSTRIDIUM HIST. 30 GRAMS TUBE TP SCH (10:18)
[2021-11-09] MEDS: NICOTINE 7 MG/24 HOURS TOPICAL PATCH TD SCH (10:42)
[2021-11-09] MEDS: AMINO ACIDS/PROTEIN HYDROLYS 30 ML LIQUID.PKT PO SCH ×2 (10:42→17:50)
[2021-11-09] MEDS: VITAMIN B COMP W-C 1 EA TABLET (NEPHRO-VITE) PO SCH (10:42)
[2021-11-09] MEDS: METOPROLOL TARTRATE 25 MG TABLET (FP) PO SCH ×2 (10:42→21:33)
[2021-11-09] MEDS: SACUBITRIL/VALSARTAN 24 MG-26 MG TABLET PO SCH ×2 (10:42→21:33)
[2021-11-09] MEDS: ZINC SULFATE 220 MG CAPSULE (FP) PO SCH (10:42)
[2021-11-09] MEDS: BUDESONIDE/FORMETEROL FUMARATE 80/4.5 mcg INHALER IH SCH ×2 (10:43→21:33)
[2021-11-09] MEDS: traMADol HCL 50 MG TABLET PO PRN ×2 (10:51→17:52)
[2021-11-09] MEDS: ACETAMINOPHEN 325 MG TABLET (FP) PO PRN (19:48)
[2021-11-09] MEDS: ATORVASTATIN CA 20 MG TABLET (FP) PO SCH (21:33)
[2021-11-10] MEDS: DEXTROSE 10%-WATER - 1,000 ML IV SCH (10:00)
[2021-11-10] MEDS: VITAMIN B COMP W-C 1 EA TABLET (NEPHRO-VITE) PO SCH (10:22)
[2021-11-10] MEDS: METOPROLOL TARTRATE 25 MG TABLET (FP) PO SCH ×2 (10:22→21:16)
[2021-11-10] MEDS: AMINO ACIDS/PROTEIN HYDROLYS 30 ML LIQUID.PKT PO SCH ×3 (10:22→18:32)
[2021-11-10] MEDS: SACUBITRIL/VALSARTAN 24 MG-26 MG TABLET PO SCH ×2 (10:22→21:16)
[2021-11-10] MEDS: NICOTINE 7 MG/24 HOURS TOPICAL PATCH TD SCH (10:23)
[2021-11-10] MEDS: ZINC SULFATE 220 MG CAPSULE (FP) PO SCH (10:23)
[2021-11-10] MEDS: COLLAGENASE CLOSTRIDIUM HIST. 30 GRAMS TUBE TP SCH (10:23)
[2021-11-10] MEDS: BUDESONIDE/FORMETEROL FUMARATE 80/4.5 mcg INHALER IH SCH ×2 (10:23→21:16)
[2021-11-10] MEDS ORDERED: DEXTROSE 5%-WATER 100 ML IVPB ONE ×2 (10:28→18:21)
[2021-11-10] MEDS ORDERED: MEROPENEM 500 MG VIAL (RESTRICTED TO ID) IVPB ONE ×2 (10:28→18:21)
[2021-11-10] MEDS: DEXTROSE 4 GM TAB.CHEW PO PRN ×2 (10:34→11:32)
[2021-11-10] MEDS: MEROPENEM 500 MG in DEXTROSE 5%-WATER 100 ML IVPB SCH ×2 (10:38→18:25)
[2021-11-10] MEDS ORDERED: ALBUTEROL SO4 HFA INHALER IH PRN (11:15)
[2021-11-10] MEDS ORDERED: LIDOCAINE 2.5%/PRILOCAINE 2.5% 30 GRAM TUBE TP ONE (11:45)
[2021-11-10] MEDS ORDERED: SODIUM CHLORIDE 250 ML IV PRN (13:25)
[2021-11-10 13:26] LABS: HEMATOCRIT 21.4 % (35.4-49); MCH 30.3 pg (25.7-33.7); MCHC 32.7 g/dl (32.0-35.9); MEAN CELL VOLUME 92.6 fl (80-96); MEAN PLT VOLUME 8.8 fl (7.5-11.1); RBC 2.31 M/mm3 (4.00-5.60); RDW 18.3 % (11.9-15.9); WHITE BLOOD COUNT 2.6 K/mm3 (4.0-10.0)
[2021-11-10 13:31] LABS: PLATELET COUNT 15 10^3/uL (134-434)
[2021-11-10 13:48] LABS: CALCIUM 7.3 mg/dL (8.5-10.1)
[2021-11-10 13:49] LABS: ALBUMIN 1.7 g/dl (3.4-5.0); BLOOD UREA NITROGEN 41.8 mg/dL (7-18)
[2021-11-10 13:53] LABS: BILIRUBIN,TOTAL 1.3 mg/dL (0.2-1)
[2021-11-10] MEDS ORDERED: EPOETIN ALFA-EPBX 4,000 UNIT/ML VIAL IVPUSH ONE (14:00)
[2021-11-10] MEDS ORDERED: EPOETIN ALFA-EPBX 10,000 UNIT/ML VIAL IVPUSH ONE (14:30)
[2021-11-10] MEDS ORDERED: IRON SUCROSE INJECTION 100 MG in SODIUM CHLORIDE 100 ML IVPB ONE (14:30)
[2021-11-10] MEDS: ACETAMINOPHEN 325 MG TABLET (FP) PO PRN (20:42)
[2021-11-10] MEDS: ATORVASTATIN CA 20 MG TABLET (FP) PO SCH (21:16)
[2021-11-11] MEDS: HYDROCORTISONE SOD SUCCINATE 100 MG/2 ML VIAL IVPB SCH ×3 (04:36→16:24)
[2021-11-11] MEDS ORDERED: MEROPENEM 500 MG VIAL (RESTRICTED TO ID) IVPB ONE ×2 (06:15→16:00)
[2021-11-11] MEDS ORDERED: DEXTROSE 5%-WATER 100 ML IVPB ONE ×2 (06:16→16:00)
[2021-11-11] MEDS: MEROPENEM 500 MG in DEXTROSE 5%-WATER 100 ML IVPB SCH ×2 (06:28→18:25)
[2021-11-11] MEDS: AMINO ACIDS/PROTEIN HYDROLYS 30 ML LIQUID.PKT PO SCH ×2 (09:05→16:30)
[2021-11-11 09:51] VITALS: TEMP 97.5
[2021-11-11] MEDS: METOPROLOL TARTRATE 25 MG TABLET (FP) PO SCH (10:19)
[2021-11-11] MEDS: NICOTINE 7 MG/24 HOURS TOPICAL PATCH TD SCH (10:19)
[2021-11-11] MEDS: VITAMIN B COMP W-C 1 EA TABLET (NEPHRO-VITE) PO SCH (10:19)
[2021-11-11] MEDS: ZINC SULFATE 220 MG CAPSULE (FP) PO SCH (10:19)
[2021-11-11] MEDS: SACUBITRIL/VALSARTAN 24 MG-26 MG TABLET PO SCH (10:22)
[2021-11-11] MEDS: BUDESONIDE/FORMETEROL FUMARATE 80/4.5 mcg INHALER IH SCH (10:23)
[2021-11-11] MEDS ORDERED: guaiFENesin 200 MG/10 ML 10 ML UNIT-DOSE CUPS PO PRN (11:43)
[2021-11-11] MEDS ORDERED: PHYTONADIONE 10 MG/1 ML AMP IVPB ONE (13:59)
[2021-11-11] MEDS ORDERED: guaiFENesin/D-M SUGAR-FREE/ACLHOL-FREE 5 ML UNIT DOSE PO PRN (14:13)
[2021-11-11] MEDS ORDERED: guaiFENesin/D-M SUGAR-FREE/ACLHOL-FREE 118 ML BOTTLE PO PRN (14:13)
[2021-11-11] MEDS: DEXTROSE 10%-WATER - 1,000 ML IV SCH (15:39)
[2021-11-11] MEDS: COLLAGENASE CLOSTRIDIUM HIST. 30 GRAMS TUBE TP SCH (15:39)
[2021-11-11] MEDS ORDERED: EPOETIN ALFA-EPBX 10,000 UNIT/ML VIAL SQ ONE (16:56)
[2021-11-11] MEDS ORDERED: SODIUM CHLORIDE 250 ML IV PRN (16:56)
[2021-11-11 18:25] VITALS: BP 134/62; PULSE 62
== END 2021-11-11 21:45 | disposition expired | DRG 720 ==
LOC: JER 09:04 → JERBED 09:32 → JICU 18:07 → J6S 11-05 18:00
PROVIDERS: ADMIT Internal Medicine; ATTEND Internal Medicine
PROC: 5A1D70Z Performance of Urinary Filtration, Intermittent, Less than 6 Hours Per Day (ICD-10-PCS; principal; 2021-11-03)
PROC: 5A1D70Z Performance of Urinary Filtration, Intermittent, Less than 6 Hours Per Day (ICD-10-PCS; 2021-11-04)
DX: A41.9 Sepsis, unspecified organism (principal); J96.01 Acute respiratory failure with hypoxia; E43 Unspecified severe protein-calorie malnutrition; D61.818 Other pancytopenia; I13.2 Hypertensive heart and chronic kidney disease with heart failure and with stage 5 chronic kidney disease, or end stage renal disease; G93.41 Metabolic encephalopathy; L89.154 Pressure ulcer of sacral region, stage 4; E10.22 Type 1 diabetes mellitus with diabetic chronic kidney disease; N18.6 End stage renal disease; E10.649 Type 1 diabetes mellitus with hypoglycemia without coma; I50.9 Heart failure, unspecified; R64 Cachexia; R18.8 Other ascites; E87.5 Hyperkalemia; Z99.81 Dependence on supplemental oxygen; J18.9 Pneumonia, unspecified organism; E87.1 Hypo-osmolality and hyponatremia; I27.20 Pulmonary hypertension, unspecified; I31.3 Pericardial effusion (noninflammatory); E10.40 Type 1 diabetes mellitus with diabetic neuropathy, unspecified; D68.9 Coagulation defect, unspecified; Z99.2 Dependence on renal dialysis; J44.9 Chronic obstructive pulmonary disease, unspecified; I44.0 Atrioventricular block, first degree; I44.7 Left bundle-branch block, unspecified; I25.10 Atherosclerotic heart disease of native coronary artery without angina pectoris; Z66 Do not resuscitate; D64.9 Anemia, unspecified; Z79.4 Long term (current) use of insulin; Z68.1 Body mass index [BMI] 19.9 or less, adult; Z88.0 Allergy status to penicillin; E78.5 Hyperlipidemia, unspecified; F32.A Depression, unspecified; E87.6 Hypokalemia; E20.9 Hypoparathyroidism, unspecified; R74.8 Abnormal levels of other serum enzymes; B18.2 Chronic viral hepatitis C
CPT/HCPCS: 36415; 36430; 36511; 70450-TC; 71045-TC-FY; 71275-TC; 74177-TC; 74230-TC-FY; 80053; 81003; 82010; 82272; 82533; 82550; 82803; 82962; 83605; 83735; 83880; 84100; 84443; 84484; 85025; 85027; 85384; 85610; 85730; 86038; 86803; 86850; 86900; 86901; 86922; 87040; 87070; 87086; 87186; 87205; 87340; 87522; 87536; 92611-GN; 93005; 93010; 93306-TC; 94660; 99285-25; C9803-CS; G0480; J1756; P9034; P9038; Q5106; Q9967; U0003; U0005